=== PATIENT | male | born 1945 | race Caucasian/White ===

== ENCOUNTER 2019-03-01 20:09 | Inpatient (IN) | payer OTHER ==
--- NOTE | 2019-03-01 20:50 | PDOC ---
History of Present Illness - History of Present Illness Initial Comments: 73 year old male with no known PMH presenting with generalized weakness, decreased appetite, and urinary difficulty for the past few days. States that the first symptom was urinary difficulty about one week prior presenting with generalized weakness for the past three days and decreased appetite. Also stats that he felt chilly three days prior to this weakness. During our interview, I noticed a mild cough which he was not aware of until I had mentioned it. Denies measured fevers, nausea, vomiting, chest pain, or SOB. 03/01/19 21:50 <Josselyn Meadows - Last Filed: 03/02/19 04:01> <Harjeet Hernandez - Last Filed: 03/02/19 06:16> - General Chief Complaint: Weakness Stated Complaint: WEAKNESS Time Seen by Provider: 03/01/19 20:49 Past History <Josselyn Meadows - Last Filed: 03/02/19 04:01> <Harjeet Hernandez - Last Filed: 03/02/19 06:16> - Past Medical History Allergies/Adverse Reactions: Allergies Allergy/AdvReac Type Severity Reaction Status Date / Time No Known Allergies Allergy Verified 03/01/19 20:54 Home Medications: Ambulatory Orders Aspirin [Children's Aspirin] 81 mg PO DAILY 03/01/19 Glucosamine Sulfate Dipot Chlr [Glucosamine] 1,000 mg PO DAILY 03/01/19 Ibuprofen [Advil -] 400 mg PO DAILY 03/01/19 Review of Systems - Review of Systems Constitutional: Yes: Chills, Loss of Appetite, Weakness. No: Diaphoresis, Fever , Malaise HEENTM: No: Blurred Vision, Tearing Respiratory: Yes: Cough. No: Shortness of Breath Cardiac (ROS): No: Chest Pain, Edema ABD/GI: Yes: Poor Appetite. No: Diarrhea, Nausea, Vomiting : Yes: Other (hesitation). No: Dysuria, Discharge, Frequency Musculoskeletal: No: Back Pain, Joint Pain Integumentary: No: Bruising, Flushing, Lesions Neurological: No: Headache, Numbness, Paresthesia Psychiatric: No: Anxiety, Depression Endocrine: No: Excessive Sweating, Flushing, Intolerance to Heat Hematologic/Lymphatic: No: Anemia, Blood Clots, Easy Bleeding <Josselyn Meadows - Last Filed: 03/02/19 04:01> *Physical Exam - Physical Exam General Appearance: Yes: Nourished, Appropriately Dressed. No: Apparent Distress HEENT: positive: EOMI, LUIS FELIPE, Normal Voice. negative: Normal ENT Inspection ( dry mucous membranes) Neck: positive: Trachea midline, Normal Thyroid, Supple. negative: Tender, Rigid Respiratory/Chest: positive: Lungs Clear, Normal Breath Sounds. negative: Chest Tender, Respiratory Distress, Accessory Muscle Use Cardiovascular: positive: Regular Rhythm, Tachycardia Gastrointestinal/Abdominal: positive: Normal Bowel Sounds, Flat, Soft. negative : Tender Musculoskeletal: positive: Normal Inspection Extremity: positive: Normal Capillary Refill, Normal Inspection, Normal Range of Motion. negative: Tender Integumentary: positive: Normal Color, Dry, Warm Neurologic: positive: Fully Oriented, Alert, Normal Mood/Affect, Normal Response , Motor Strength 5/5 <Josselyn Meadows - Last Filed: 03/02/19 04:01> - Vital Signs Last Vital Signs Temp Pulse Resp BP Pulse Ox 98.3 F 86 18 131/81 98 03/02/19 03:39 03/02/19 03:39 03/02/19 03:39 03/02/19 03:39 03/02/19 05:09 <Harjeet Hernandez - Last Filed: 03/02/19 06:16> ED Treatment Course - LABORATORY CBC & Chemistry Diagram: 03/01/19 22:15 03/01/19 22:15 <Josselyn Meadows - Last Filed: 03/02/19 04:01> - LABORATORY CBC & Chemistry Diagram: 03/01/19 22:15 03/01/19 22:15 - ADDITIONAL ORDERS Additional order review: Laboratory Results 03/02/19 03/01/19 03/01/19 00:20 22:15 22:15 VBG pH 7.43 H POC VBG pCO2 34.9 L POC VBG pO2 < 49 H VBG HCO3 22.8 L VBG O2 Sat (Herbert) 76.3 VBG Base Excess -0.5 Sodium 137 Potassium 3.5 Chloride 104 Carbon Dioxide 23 Anion Gap 10 BUN 22.4 H Creatinine 1.2 Est GFR (CKD-EPI)AfAm 69.11 Est GFR (CKD-EPI)NonAf 59.63 Random Glucose 128 H Calcium 9.9 Total Bilirubin 2.8 H AST 23 ALT 38 Alkaline Phosphatase 159 H Total Protein 5.6 L Albumin 2.6 L Urine Color Dk yellow Urine Appearance Turbid Urine pH 5.5 Ur Specific [place] 1.019 Urine Protein 3+ H Urine Glucose (UA) Negative Urine Ketones Negative Urine Blood 3+ H Urine Nitrite Positive H Urine Bilirubin 2+ H Urine Urobilinogen 2.0 Ur Leukocyte Esterase 1+ H Urine WBC (Auto) 47 Urine RBC (Auto) 397 Urine Casts (Auto) 38 U Pathogenic Cast Auto Negative U Epithel Cells (Auto) 0.9 Urine Bacteria (Auto) 5728.0 03/01/19 22:15 RBC 4.90 MCV 89.7 MCHC 33.6 RDW 14.5 MPV 9.0 - Medications Given in the ED: ED Medications Discontinued Medications Generic Name Dose Route Start Last Admin Trade Name Freq PRN Reason Stop Dose Admin Acetaminophen 1,000 mg 03/02/19 00:01 03/02/19 00:29 Ofirmev Injection - IVPB 03/02/19 00:02 1,000 mg ONCE ONE Administration Ceftriaxone Sodium 1 gm/ 100 mls @ 200 mls/hr 03/02/19 00:54 03/02/19 01:25 Dextrose IVPB 03/02/19 01:23 200 mls/hr ONCE ONE Administration Sodium Chloride 1,000 mls @ 75 mls/hr 03/02/19 01:45 03/02/19 02:00 Normal Saline - IV 75 mls/hr ASDIR RAPHAEL Administration Ceftriaxone Sodium 1 gm/ 50 mls @ 100 mls/hr 03/02/19 02:06 03/02/19 03:08 Dextrose IVPB 03/02/19 02:35 Not Given ONCE ONE Ketorolac Tromethamine 15 mg 03/02/19 02:22 03/02/19 02:30 Toradol Injection - IVPUSH 03/07/19 02:21 15 mg Q6H PRN Administration PAIN LEVEL 6-10 Lidocaine 1 patch 03/02/19 00:41 03/02/19 00:51 Lidoderm Patch - TP 03/02/19 00:42 1 patch ONCE ONE Administration Sodium Chloride 1,000 ml 03/01/19 21:06 03/01/19 21:47 Normal Saline - IV 03/01/19 21:07 1,000 ml ONCE ONE Administration Tamsulosin HCl 0.4 mg 03/02/19 02:23 03/02/19 02:49 Flomax - PO 03/02/19 02:24 0.4 mg ONCE ONE Administration <Harjeet Hernandez - Last Filed: 03/02/19 06:16> Medical Decision Making - Medical Decision Making 73 year old male with no significant past medical history presenting with urinary difficulty, chills, and weakness for the past few days. Denies fevers, chest pain, or other symptoms. UA demonstrating UTI and labs demonstrating leukocytosis. CT demonstrating multiple nephroliths with 12mm nephrolith near left UVJ. No hydro noted. Patient given ceftriaxone 1GM and admitted to medicine service. 03/02/19 04:02 <Josselyn Meadows - Last Filed: 03/02/19 04:01> *DC/Admit/Observation/Transfer - Discharge Dispostion Decision to Admit order: Yes <Josselyn Meadows - Last Filed: 03/02/19 04:01> - Attestations Physician Attestion: 03/02/19 06:16 I have reviewed the plan as documented and agree with current plan as documented. Electronically co-signed by Harjeet Hernandez MD <Harjeet Hernandez - Last Filed: 03/02/19 06:16> Diagnosis at time of Disposition: UTI (urinary tract infection), Nephrolithiasis - Discharge Dispostion Disposition: HOME Condition at time of disposition: Stable
[2019-03-01] MEDS ORDERED: SODIUM CHLORIDE 0.9% 500 ML INFUS.BAG IV ONE (21:06)
--- NOTE | 2019-03-01 22:04 | PDOC ---
Documentation entered by Justus Torres SCRIBE, acting as scribe for Harjeet Hernandez MD. Harjeet Hernandez MD: This documentation has been prepared by the Brian maldonado Daniel, SCRIBE, under my direction and personally reviewed by me in its entirety. I confirm that the documentation accurately reflects all work, treatment, procedures, and medical decision making performed by me. Attending Attestation - Resident Resident Name: Josselyn Meadows - ED Attending Attestation I have performed the following: I have examined & evaluated the patient, The case was reviewed & discussed with the resident, I agree w/resident's findings & plan, Exceptions are as noted - HPI HPI: 03/01/19 21:52 The patient is a 73 year old male, no pmhx (though has not seen a doctor for 30 years) today for evaluation of weakness. The patient reports that he has had general weakness for 5 days and also notes cough and difficulty urinating describing it as feeling like he has to urinate but nothing comes out. He also notes difficulty walking due to knee pain but states that this is baseline for him. complains of chronic knee pain slightly worse from baseline but is able to ambulate. Patient denies headache, lightheadedness. Denies fever, chills. Denies chest pain, shortness of breath. Denies nausea, vomiting, diarrhea, abdominal pain. Denies Etoh, not a smoker. Allergies: NKA 03/01/19 22:02 - Physicial Exam PE: 03/01/19 21:52 Agree with resident's exam. - Medical Decision Making 03/01/19 22:03 Generalized weakness but no focal symptoms, well appearing with stable vitals labs ekg ua/ucx cxr if workup wnl and continued normal vital signs can consider pmd f/u
[2019-03-01 22:28] LABS: HEMATOCRIT 43.9 % (35.4-49); HEMOGLOBIN 14.7 GM/dL (11.7-16.9); MCH 30.1 pg (25.7-33.7); MCHC 33.6 g/dl (32.0-35.9); MEAN CELL VOLUME 89.7 fl (80-96); PLATELET COUNT 110 K/MM3 (134-434); RDW 14.5 % (11.9-15.9); WHITE BLOOD COUNT 15.6 K/mm3 (4.0-10.0)
[2019-03-01 22:33] LABS: VENOUS PC02 34.9 mmHg (38-52); VENOUS PH 7.43 (7.31-7.41); VENOUS PO2 < 49 mmHg (28-48)
[2019-03-01 22:50] LABS: ALBUMIN 2.6 g/dl (3.4-5.0); BILIRUBIN,TOTAL 2.8 mg/dL (0.2-1); BLOOD UREA NITROGEN 22.4 mg/dL (7-18); CALCIUM 9.9 mg/dL (8.5-10.1); CREATININE 1.2 mg/dL (0.55-1.3); POTASSIUM 3.5 mmol/L (3.5-5.1); TOT PROT 5.6 g/dl (6.4-8.2)
[2019-03-02] MEDS ORDERED: ACETAMINOPHEN 1000 MG/100 ML VIAL (NON FORMULARY) IVPB ONE (00:01)
[2019-03-02] MEDS ORDERED: ACETAMINOPHEN INJECTION 100 ML IVPB ONE (00:03)
[2019-03-02] MEDS ORDERED: LIDOCAINE 5% TOPICAL PATCH TP ONE (00:41)
[2019-03-02 00:44] LABS: EPI CELLS 0.9 /HPF (0-5/HPF); HYALINE CASTS 38 /lpf (0-8); PH,URINE 5.5 (5.0-8.0); URINE APPEARANCE TURBID; URINE BILIRUBIN 2+ (NEGATIVE); URINE COLOR DK YELLOW; URINE GLUCOSE (UA) NEGATIVE (NEGATIVE); URINE KETONE NEGATIVE (NEGATIVE); URINE LEUK ESTERASE 1+ (NEGATIVE); URINE NITRITE POSITIVE (NEGATIVE); URINE PROTEIN 3+ (NEGATIVE); URINE RBC 397 /hpf (0-4); URINE WBC 47 /hpf (0-5)
[2019-03-02] MEDS ORDERED: LIDOCAINE 5% TOPICAL PATCH ONE (00:47)
[2019-03-02] MEDS ORDERED: CEFTRIAXONE 1 GM in DEXTROSE 5%-WATER - 100 ML IVPB ONE (00:54)
[2019-03-02] MEDS ORDERED: CEFTRIAXONE 1 GM/50 ML BAG ONE (01:14)
[2019-03-02] MEDS ORDERED: SODIUM CHLORIDE 1,000 ML IV SCH (01:45)
[2019-03-02] MEDS ORDERED: ACETAMINOPHEN 1000 MG/100 ML VIAL (NON FORMULARY) IVPB PRN (01:46)
[2019-03-02] MEDS ORDERED: CEFTRIAXONE 1 GM in DEXTROSE 5%-WATER - 50 ML IVPB ONE (02:06)
--- NOTE | 2019-03-02 02:10 | HP ---
CHIEF COMPLAINT: Generalized weakness, decreased appetite, and urinary hesitancy for the past 5 days. PCP: None HISTORY OF PRESENT ILLNESS: The patient is a 73 year old male with no significant PMH. He presents to the ER with complaints of weakness, decreased appetite, and urinary hesitancy for the past 5 days. He was consuming beers at a local bar when he took a break to urinate. After urinating, he states that he began to feel very cold and his hands started shaking. After that episode, he developed urinary hesitancy and dribbling with the urine appearing darker than usual. He also developed loss of appetite, and has consumed only liquids since then. There are no associated complaints of abdominal pain, dysuria, hematuria, or incontinence. He also complains of gradual onset, constant right sided knee pain for the past 3 years, with no history of associated trauma. He describes it as being constant , and sharp in quality, rated 8/10 in intensity. He takes 2 Advils per day to manage the pain. He has also had a dry cough for the past one week, with no associated fever, shortness of breath, chest pain. (1) CT AP: prelim reading reports 12mm RUVJ stone with mod hydronephrosis and scattered renal stones (2) WBC 15.6 (3) Meropenem 1gm in Dextrose, Ceftriaxone 1gm given previously Recent Travel: None PAST MEDICAL HISTORY: None PAST SURGICAL HISTORY: None Social History: Smoking: None Alcohol: 7-8 beers every other day for the past 55 years Drugs: None Family History: Brother had some sort of cancer, at the age of 43 Allergies No Known Allergies Allergy (Verified 03/01/19 20:54) HOME MEDICATIONS: Home Medications Medication Instructions Recorded Aspirin [Children's Aspirin] 81 mg PO DAILY 03/01/19 Glucosamine Sulfate Dipot Chlr 1,000 mg PO DAILY 03/01/19 [Glucosamine] Ibuprofen [Advil -] 400 mg PO DAILY 03/01/19 REVIEW OF SYSTEMS CONSTITUTIONAL: generalized weakness Absent: fever, chills, diaphoresis, malaise, loss of appetite, weight change HEENT: Absent: rhinorrhea, nasal congestion, throat pain, throat swelling, difficulty swallowing, mouth swelling, ear pain, eye pain, visual changes CARDIOVASCULAR: Absent: chest pain, syncope, palpitations, irregular heart rate, lightheadedness , peripheral edema RESPIRATORY: cough Absent: cough, shortness of breath, dyspnea with exertion, orthopnea, wheezing, stridor, hemoptysis GASTROINTESTINAL: Absent: abdominal pain, abdominal distension, nausea, vomiting, diarrhea, constipation, melena, hematochezia GENITOURINARY: Absent: dysuria, frequency, urgency, hesitancy, hematuria, flank pain, genital pain MUSCULOSKELETAL: Absent: myalgia, arthralgia, joint swelling, back pain, neck pain SKIN: Absent: rash, itching, pallor HEMATOLOGIC/IMMUNOLOGIC: Absent: easy bleeding, easy bruising, lymphadenopathy, frequent infections ENDOCRINE: Absent: unexplained weight gain, unexplained weight loss, heat intolerance, cold intolerance NEUROLOGIC: Absent: headache, focal weakness or paresthesias, dizziness, unsteady gait, seizure, mental status changes, bladder or bowel incontinence PSYCHIATRIC: Absent: anxiety, depression, suicidal or homicidal ideation, hallucinations. PHYSICAL EXAMINATION Vital Signs - 24 hr 03/01/19 20:40 Temperature 98.7 F Pulse Rate 102 H Respiratory 20 Rate Blood Pressure 122/63 O2 Sat by Pulse 100 Oximetry (%) GENERAL: Awake, alert, and fully oriented, in no acute distress. HEAD: Normal with no signs of trauma. EYES: Pupils equal, round and reactive to light, extraocular movements intact, sclera anicteric, conjunctiva clear. No lid lag. EARS, NOSE, THROAT: Ears normal, nares patent, oropharynx clear without exudates. Moist mucous membranes. NECK: Normal range of motion, supple without lymphadenopathy, JVD, or masses. LUNGS: Breath sounds equal, clear to auscultation bilaterally. No wheezes, and no crackles. No accessory muscle use. HEART: Regular rate and rhythm, normal S1 and S2 without murmur, rub or gallop. ABDOMEN: Soft, nontender, not distended, normoactive bowel sounds, no guarding, no rebound, no masses. No hepatomegaly or splenomegaly. MUSCULOSKELETAL: Normal range of motion at all joints. No bony deformities or tenderness. No CVA tenderness. UPPER EXTREMITIES: 2+ pulses, warm, well-perfused. No cyanosis. No clubbing. No peripheral edema. LOWER EXTREMITIES: Lidocaine patch on R knee, limited range of motion NEUROLOGICAL: Cranial nerves II-XII intact. Normal speech, gait not observed PSYCHIATRIC: Cooperative. Good eye contact. Appropriate mood and affect. SKIN: Warm, dry, normal turgor, no rashes or lesions noted, normal capillary refill. Laboratory Results - last 24 hr 03/01/19 03/01/19 03/01/19 22:15 22:15 22:15 WBC 15.6 H RBC 4.90 Hgb 14.7 Hct 43.9 MCV 89.7 MCH 30.1 MCHC 33.6 RDW 14.5 Plt Count 110 L MPV 9.0 VBG pH 7.43 H POC VBG pCO2 34.9 L POC VBG pO2 < 49 H VBG HCO3 22.8 L VBG O2 Sat (Herbert) 76.3 VBG Base Excess -0.5 Sodium 137 Potassium 3.5 Chloride 104 Carbon Dioxide 23 Anion Gap 10 BUN 22.4 H Creatinine 1.2 Est GFR (CKD-EPI)AfAm 69.11 Est GFR (CKD-EPI)NonAf 59.63 Random Glucose 128 H Calcium 9.9 Total Bilirubin 2.8 H AST 23 ALT 38 Alkaline Phosphatase 159 H Total Protein 5.6 L Albumin 2.6 L Urine Color Urine Appearance Urine pH Ur Specific [place] Urine Protein Urine Glucose (UA) Urine Ketones Urine Blood Urine Nitrite Urine Bilirubin Urine Urobilinogen Ur Leukocyte Esterase Urine WBC (Auto) Urine RBC (Auto) Urine Casts (Auto) U Epithel Cells (Auto) Urine Bacteria (Auto) 03/02/19 00:20 WBC RBC Hgb Hct MCV MCH MCHC RDW Plt Count MPV VBG pH POC VBG pCO2 POC VBG pO2 VBG HCO3 VBG O2 Sat (Herbert) VBG Base Excess Sodium Potassium Chloride Carbon Dioxide Anion Gap BUN Creatinine Est GFR (CKD-EPI)AfAm Est GFR (CKD-EPI)NonAf Random Glucose Calcium Total Bilirubin AST ALT Alkaline Phosphatase Total Protein Albumin Urine Color Dk yellow Urine Appearance Turbid Urine pH 5.5 Ur Specific [place] 1.019 Urine Protein 3+ H Urine Glucose (UA) Negative Urine Ketones Negative Urine Blood 3+ H Urine Nitrite Positive H Urine Bilirubin 2+ H Urine Urobilinogen 2.0 Ur Leukocyte Esterase 1+ H Urine WBC (Auto) 47 Urine RBC (Auto) 397 Urine Casts (Auto) 38 U Epithel Cells (Auto) 0.9 Urine Bacteria (Auto) 5728.0 ASSESSMENT/PLAN: # Rt UVJ stone - CT AP prelim read shows 12mm stone inn R UVJ - Meropenem 1gm in Dextrose, Ceftriaxone 1gm given previously - Morphine 4mg Q4 IV and Ofiramev 1g Q6 for pain - Dalton placed - ID and Urology consults placed - Tamsulosin 0.4mg #Rt knee pain - Ortho consult placed - Rt knee X Ray read pending - PT ordered #Elevated ALP, Bili - Bili 2.8, ALP 159 - RUQ US to check for bile duct dilation # Leukocytosis - Possibly 2/2 obstruction - WBC 15.6 - Blood cx and Ucx ordered #Thrombocytopenia - HIV and HCV ordered #FEN - NPO for possible urology procedure - N/S given - R/L@100 #DVT PE - SCDs Visit type - Emergency Visit Emergency Visit: Yes ED Registration Date: 03/02/19 Care time: The patient presented to the Emergency Department on the above date and was hospitalized for further evaluation of their emergent condition. - New Patient This patient is new to me today: Yes Date on this admission: 03/08/19 - Critical Care Critical Care patient: No ATTENDING PHYSICIAN STATEMENT I saw and evaluated the patient. I reviewed the resident's note and discussed the case with the resident. I agree with the resident's findings and plan as documented. SUBJECTIVE: OBJECTIVE: ASSESSMENT AND PLAN:
[2019-03-02] MEDS ORDERED: KETOROLAC TROMETHAMINE 15 MG/ML VIAL IVPUSH PRN (02:22)
[2019-03-02] MEDS ORDERED: TAMSULOSIN HCL 0.4 MG CAP PO ONE (02:23)
--- NOTE | 2019-03-02 02:25 | PN ---
Teaching Attending Note Name of Resident: Myles Otto ATTENDING PHYSICIAN STATEMENT I saw and evaluated the patient. I reviewed the resident's note and discussed the case with the resident. I agree with the resident's findings and plan as documented. Seen and examined; please refer to resident note for further historical information. Briefly, this is a 73 y/o male presenting to the ER with a CC of weakness, inability to make urine, urinary retention. He has BPH sx of incomplete emptying, etc. Some difficulty encountered on initial straight cath ordered by ER; we instructed nursing to place paredes. CT obtained to r/o obstruction and found to have 12mm renal stone with moderate hydr and scattered renal stones. VS, labs, imaging reviewed Abdominal exam remarkably benign, ND, +BS CN2-12 wnl, no fnd Normal mood, appropriate behavior RRR s1/2 Lungs CTAB, w/ sym exp Pain in affected knee to Valgus>Varus, no heriberto positive lachmans. Normal mood, appropriate behavior CT personally reviewed; preliminary report noted. Final pending. ASSESSMENT AND PLAN: Patient presents with sepsis 2/2 UTI due to obstructing R-UVJ stone causing R- hydro. Incidentally with thrombocytopenia (HIV and HCV pending), elevated bili and alk phos with normal AST/ALT. Doesn't normally follow with a doctor. Has chronic knee pain and wishes to see ortho. # Sepsis 2/2 UTI with obstructing stone R-UVJ -Merrem, ID and uro consult. LR@100. NPO. Checking coags and type and cross. # Elevated Alk phos, bili -GGT, direct, RUQ US # Thrombocytopenia -HIV and HCV pending # Chronic Knee pain -Followup ortho consult; PRN analgesia Full Code
[2019-03-02] MEDS ORDERED: KETOROLAC TROMETHAMINE 15 MG/ML VIAL ONE (02:27)
[2019-03-02] MEDS ORDERED: MEROPENEM 1 GM VIAL (RESTRICTED TO ID) IVPB ONE ×3 (02:27→18:00)
[2019-03-02] MEDS ORDERED: TAMSULOSIN HCL 0.4 MG CAP ONE (02:27)
[2019-03-02] MEDS ORDERED: MORPHINE SULFATE 2 MG/ML VIAL IVPUSH PRN (02:37)
[2019-03-02] MEDS: MEROPENEM 1 GM in DEXTROSE 5%-WATER 100 ML IVPB SCH ×5 (02:49→20:06)
[2019-03-02] MEDS: LACTATED RINGERS SOLUTION 1,000 ML/1,000 ML INFUS.BAG IV SCH (03:06)
[2019-03-02 05:08] VITALS: BMI 29.5
[2019-03-02 08:03] LABS: ALBUMIN 2.4 g/dl (3.4-5.0); BILIRUBIN,TOTAL 2.4 mg/dL (0.2-1); BLOOD UREA NITROGEN 24.2 mg/dL (7-18); CALCIUM 9.7 mg/dL (8.5-10.1); CREATININE 1.3 mg/dL (0.55-1.3); POTASSIUM 3.8 mmol/L (3.5-5.1); TOT PROT 5.3 g/dl (6.4-8.2)
[2019-03-02 08:05] LABS: BASO % 0.2 % (0-2.0); EOS % 0.4 % (0-4.5); HEMATOCRIT 39.8 % (35.4-49); HEMOGLOBIN 13.7 GM/dL (11.7-16.9); LYMPH % 4.4 % (8-40); MCH 30.4 pg (25.7-33.7); MCHC 34.4 g/dl (32.0-35.9); MEAN CELL VOLUME 88.5 fl (80-96); MEAN PLT VOLUME 9.7 fl (7.5-11.1); MONO % 10.9 % (3.8-10.2); NEUT % 84.1 % (42.8-82.8); PLATELET COUNT 115 K/MM3 (134-434); RBC 4.49 M/mm3 (4.00-5.60); RDW 14.4 % (11.9-15.9); WHITE BLOOD COUNT 13.3 K/mm3 (4.0-10.0)
[2019-03-02 08:11] LABS: INR 1.28 (0.83-1.09); PROTHROMBIN TIME (PATIENT) 15.2 SEC (9.7-13.0)
[2019-03-02 08:14] LABS: ACTIVATED PTT 33.1 SECONDS (25.2-36.5)
[2019-03-02 08:21] LABS: BILIRUBIN,DIRECT 1.8 mg/dL (0.0-0.2)
[2019-03-02 08:24] LABS: BILIRUBIN,DIRECT 1.9 mg/dL (0.0-0.2); N-TERMINAL BNP 1089.2 pg/ml (5-125)
[2019-03-02] MEDS: TAMSULOSIN HCL 0.4 MG CAP PO SCH ×2 (09:10→10:55)
[2019-03-02] MEDS ORDERED: DEXTROSE 5%-WATER 100 ML IVPB ONE ×2 (09:11→18:00)
[2019-03-02 09:57] LABS: ANISOCYTOSIS 0; MACROCYTOSIS 0; PLATELET ESTIMATE DECREASED
[2019-03-02] MEDS ORDERED: CEFTRIAXONE 1 GM in DEXTROSE 5%-WATER - 50 ML IVPB SCH (10:00)
--- NOTE | 2019-03-02 10:55 | EKG ---
Test Reason : Blood Pressure : / mmHG Vent. Rate : 091 BPM Atrial Rate : 091 BPM P-R Int : 232 ms QRS Dur : 108 ms QT Int : 372 ms P-R-T Axes : 036 -27 008 degrees QTc Int : 457 ms SINUS RHYTHM WITH 1ST DEGREE A-V BLOCK WITH FREQUENT and consecutive PREMATURE VENTRICULAR COMPLEXES INCOMPLETE RIGHT BUNDLE BRANCH BLOCK MINIMAL VOLTAGE CRITERIA FOR LVH, MAY BE NORMAL VARIANT ABNORMAL ECG NO PREVIOUS ECGS AVAILABLE Confirmed by ALFREDO HELLER, LINO ([id number]) on 03/02/2019 10:55:03 AM Referred By: Confirmed By:LINO FUENTES MD
--- NOTE | 2019-03-02 17:13 | CON.GU ---
Consult Consult Specialty:: - History of Present Illness History of Present Illness: 73 y/o male presenting to the ER with a CC of weakness, inability to make urine , urinary retention. He has BPH sx of incomplete emptying, etc. Some difficulty encountered on initial straight cath ordered by ER; we instructed nursing to place paredes. CT obtained to r/o obstruction and found to have 12mm R UVJ stone with moderate hydro and scattered renal stones and cons req. - History Source History Provided By: Patient, Medical Record Limitations to Obtaining History: No Limitations - Alcohol/Substance Use Hx Alcohol Use: Yes (SOCIALLY) - Smoking History Smoking history: Never smoked Home Medications - Allergies Allergies/Adverse Reactions: Allergies Allergy/AdvReac Type Severity Reaction Status Date / Time No Known Allergies Allergy Verified 03/01/19 20:54 - Home Medications Home Medications: Ambulatory Orders Aspirin [Children's Aspirin] 81 mg PO DAILY 03/01/19 Glucosamine Sulfate Dipot Chlr [Glucosamine] 1,000 mg PO DAILY 03/01/19 Ibuprofen [Advil -] 400 mg PO DAILY 03/01/19 Physical Exam- Vital Signs: Vital Signs Temperature 99.7 F H 03/02/19 14:00 Pulse Rate 105 H 03/02/19 14:00 Respiratory Rate 18 03/02/19 14:00 Blood Pressure 134/58 L 03/02/19 14:00 O2 Sat by Pulse Oximetry (%) 98 03/02/19 05:09 Gastrointestinal: Yes: Soft, Tenderness Renal/: Yes: CVA Tenderness - Right Labs: CBC, BMP 03/02/19 07:00 03/02/19 07:00 Imaging - Results Cat Scan: Report Reviewed, Image Reviewed Problem List - Problems (1) Ureteral calculus Assessment/Plan: cysto R JJ stent insertion 03/03, RULL JJ after uti resolved Code(s): N20.1 - CALCULUS OF URETER (2) Hydronephrosis concurrent with and due to calculi of kidney and ureter Code(s): N13.2 - HYDRONEPHROSIS WITH RENAL AND URETERAL CALCULOUS OBSTRUCTION (3) UTI (urinary tract infection) Assessment/Plan: ur cxs, iv abxs Code(s): N39.0 - URINARY TRACT INFECTION, SITE NOT SPECIFIED (4) Renal calculi Code(s): N20.0 - CALCULUS OF KIDNEY
--- NOTE | 2019-03-02 17:21 | PN ---
Physical Exam: SUBJECTIVE: Patient seen and examined. Pt reports feeling more tired than usual. He denies abdominal pain or chest pain. OBJECTIVE: Vital Signs Period Temp Pulse Resp BP Sys/Hernandez Pulse Ox Last 24 Hr 97.6 F-99.7 F 86-105 18-20 119-134/58-82 97-100 GENERAL: The patient is awake, alert, and fully oriented, in no acute distress. HEAD: Normal with no signs of trauma. EYES: PERRL, extraocular movements intact, sclera anicteric, conjunctiva clear. No ptosis. ENT: Ears normal, nares patent, moist mucous membranes. NECK: Trachea midline, full range of motion, supple. LUNGS: Breath sounds equal, clear to auscultation bilaterally, no wheezes, no crackles, no accessory muscle use. HEART:Regular rate and irregular rhythm, S1, S2 without murmur, rub or gallop. ABDOMEN: Soft, suprapubic tenderness, nondistended, normoactive bowel sounds EXTREMITIES: 2+ pulses, warm, well-perfused, +1 pitting edema bilateral feet NEUROLOGICAL: Cranial nerves II through XII grossly intact. Normal speech, gait not observed. PSYCH: Normal mood, normal affect. SKIN: Warm, dry, normal turgor, no rashes or lesions noted Laboratory Results - last 24 hr 03/01/19 03/01/19 03/01/19 22:15 22:15 22:15 WBC 15.6 H RBC 4.90 Hgb 14.7 Hct 43.9 MCV 89.7 MCH 30.1 MCHC 33.6 RDW 14.5 Plt Count 110 L MPV 9.0 Absolute Neuts (auto) Neutrophils % Neutrophils % (Manual) Band Neutrophils % Lymphocytes % Lymphocytes % (Manual) Monocytes % Monocytes % (Manual) Eosinophils % Eosinophils % (Manual) Basophils % Basophils % (Manual) Myelocytes % (Man) Promyelocytes % (Man) Blast Cells % (Manual) Nucleated RBC % Metamyelocytes Hypochromia Platelet Estimate Polychromasia Poikilocytosis Anisocytosis Microcytosis Macrocytosis PT with INR INR PTT (Actin FS) VBG pH 7.43 H POC VBG pCO2 34.9 L POC VBG pO2 < 49 H VBG HCO3 22.8 L VBG O2 Sat (Herbert) 76.3 VBG Base Excess -0.5 Sodium 137 Potassium 3.5 Chloride 104 Carbon Dioxide 23 Anion Gap 10 BUN 22.4 H Creatinine 1.2 Est GFR (CKD-EPI)AfAm 69.11 Est GFR (CKD-EPI)NonAf 59.63 Random Glucose 128 H Lactic Acid Calcium 9.9 Magnesium Total Bilirubin 2.8 H Direct Bilirubin 1.9 H AST 23 ALT 38 Alkaline Phosphatase 159 H B-Natriuretic Peptide 1089.2 H Total Protein 5.6 L Albumin 2.6 L Lipase Urine Color Urine Appearance Urine pH Ur Specific [place] Urine Protein Urine Glucose (UA) Urine Ketones Urine Blood Urine Nitrite Urine Bilirubin Urine Urobilinogen Ur Leukocyte Esterase Urine WBC (Auto) Urine RBC (Auto) Urine Casts (Auto) U Pathogenic Cast Auto U Epithel Cells (Auto) Urine Bacteria (Auto) HIV 1&2 Antibody Screen HIV P24 Antigen Blood Type Antibody Screen 03/02/19 03/02/19 03/02/19 00:15 00:20 07:00 WBC RBC Hgb Hct MCV MCH MCHC RDW Plt Count MPV Absolute Neuts (auto) Neutrophils % Neutrophils % (Manual) Band Neutrophils % Lymphocytes % Lymphocytes % (Manual) Monocytes % Monocytes % (Manual) Eosinophils % Eosinophils % (Manual) Basophils % Basophils % (Manual) Myelocytes % (Man) Promyelocytes % (Man) Blast Cells % (Manual) Nucleated RBC % Metamyelocytes Hypochromia Platelet Estimate Polychromasia Poikilocytosis Anisocytosis Microcytosis Macrocytosis PT with INR INR PTT (Actin FS) VBG pH POC VBG pCO2 POC VBG pO2 VBG HCO3 VBG O2 Sat (Herbret) VBG Base Excess Sodium Potassium Chloride Carbon Dioxide Anion Gap BUN Creatinine Est GFR (CKD-EPI)AfAm Est GFR (CKD-EPI)NonAf Random Glucose Lactic Acid 1.6 Calcium Magnesium Total Bilirubin Direct Bilirubin AST ALT Alkaline Phosphatase B-Natriuretic Peptide Total Protein Albumin Lipase Urine Color Dk yellow Urine Appearance Turbid Urine pH 5.5 Ur Specific [place] 1.019 Urine Protein 3+ H Urine Glucose (UA) Negative Urine Ketones Negative Urine Blood 3+ H Urine Nitrite Positive H Urine Bilirubin 2+ H Urine Urobilinogen 2.0 Ur Leukocyte Esterase 1+ H Urine WBC (Auto) 47 Urine RBC (Auto) 397 Urine Casts (Auto) 38 U Pathogenic Cast Auto Negative U Epithel Cells (Auto) 0.9 Urine Bacteria (Auto) 5728.0 HIV 1&2 Antibody Screen HIV P24 Antigen Blood Type O POSITIVE Antibody Screen 03/02/19 03/02/19 03/02/19 07:00 07:00 07:00 WBC 13.3 H RBC 4.49 Hgb 13.7 Hct 39.8 MCV 88.5 MCH 30.4 MCHC 34.4 RDW 14.4 Plt Count 115 L MPV 9.7 Absolute Neuts (auto) 11.2 H Neutrophils % 84.1 H Neutrophils % (Manual) 83.7 H Band Neutrophils % 0.0 Lymphocytes % 4.4 L Lymphocytes % (Manual) 3.0 L Monocytes % 10.9 H Monocytes % (Manual) 13 H Eosinophils % 0.4 Eosinophils % (Manual) 0.0 Basophils % 0.2 Basophils % (Manual) 0.0 Myelocytes % (Man) 0 Promyelocytes % (Man) 0 Blast Cells % (Manual) 0 Nucleated RBC % 0 Metamyelocytes 0 Hypochromia 0 Platelet Estimate Decreased Polychromasia 0 Poikilocytosis 0 Anisocytosis 0 Microcytosis 0 Macrocytosis 0 PT with INR INR PTT (Actin FS) VBG pH POC VBG pCO2 POC VBG pO2 VBG HCO3 VBG O2 Sat (Herbert) VBG Base Excess Sodium 139 Potassium 3.8 Chloride 105 Carbon Dioxide 26 Anion Gap 7 L BUN 24.2 H Creatinine 1.3 Est GFR (CKD-EPI)AfAm 62.74 Est GFR (CKD-EPI)NonAf 54.13 Random Glucose 99 Lactic Acid Calcium 9.7 Magnesium 2.0 Total Bilirubin 2.4 H Direct Bilirubin 1.8 H AST 19 ALT 32 Alkaline Phosphatase 137 H B-Natriuretic Peptide Total Protein 5.3 L Albumin 2.4 L Lipase Urine Color Urine Appearance Urine pH Ur Specific [place] Urine Protein Urine Glucose (UA) Urine Ketones Urine Blood Urine Nitrite Urine Bilirubin Urine Urobilinogen Ur Leukocyte Esterase Urine WBC (Auto) Urine RBC (Auto) Urine Casts (Auto) U Pathogenic Cast Auto U Epithel Cells (Auto) Urine Bacteria (Auto) HIV 1&2 Antibody Screen Cancelled HIV P24 Antigen Cancelled Blood Type Antibody Screen 03/02/19 03/02/19 03/02/19 07:00 07:00 07:00 WBC RBC Hgb Hct MCV MCH MCHC RDW Plt Count MPV Absolute Neuts (auto) Neutrophils % Neutrophils % (Manual) Band Neutrophils % Lymphocytes % Lymphocytes % (Manual) Monocytes % Monocytes % (Manual) Eosinophils % Eosinophils % (Manual) Basophils % Basophils % (Manual) Myelocytes % (Man) Promyelocytes % (Man) Blast Cells % (Manual) Nucleated RBC % Metamyelocytes Hypochromia Platelet Estimate Polychromasia Poikilocytosis Anisocytosis Microcytosis Macrocytosis PT with INR 15.20 H INR 1.28 H PTT (Actin FS) 33.1 VBG pH POC VBG pCO2 POC VBG pO2 VBG HCO3 VBG O2 Sat (Herbert) VBG Base Excess Sodium Potassium Chloride Carbon Dioxide Anion Gap BUN Creatinine Est GFR (CKD-EPI)AfAm Est GFR (CKD-EPI)NonAf Random Glucose Lactic Acid Calcium Magnesium Total Bilirubin Direct Bilirubin AST ALT Alkaline Phosphatase B-Natriuretic Peptide Total Protein Albumin Lipase 64 L Urine Color Urine Appearance Urine pH Ur Specific [place] Urine Protein Urine Glucose (UA) Urine Ketones Urine Blood Urine Nitrite Urine Bilirubin Urine Urobilinogen Ur Leukocyte Esterase Urine WBC (Auto) Urine RBC (Auto) Urine Casts (Auto) U Pathogenic Cast Auto U Epithel Cells (Auto) Urine Bacteria (Auto) HIV 1&2 Antibody Screen HIV P24 Antigen Blood Type O POSITIVE Antibody Screen Negative Active Medications Generic Name Dose Route Start Last Admin Trade Name Freq PRN Reason Stop Dose Admin Acetaminophen 1,000 mg 03/02/19 01:46 Ofirmev Injection - IVPB Q6H PRN PAIN OR FEVER Meropenem 1 gm/ Dextrose 100 mls @ 200 mls/hr 03/02/19 02:30 IVPB Q8H-IV RAPHAEL Meropenem 1 gm/ Dextrose 100 mls @ 100 mls/hr 03/02/19 02:30 03/02/19 09:17 IVPB 03/02/19 18:59 100 mls/hr Q8H-IV RAPHAEL Administration Lactated Ringer's 1,000 ml in 1,000 mls @ 100 mls/hr 03/02/19 02:45 03/02/19 03:06 Lactated Ringers Solution IV 100 mls/hr ASDIR RAPHAEL Administration Miscellaneous 1 each 03/02/19 22:00 Lidoderm Patch Removal MC DAILY@2200 RAPHAEL Morphine Sulfate 4 mg 03/02/19 02:37 Morphine Sulfate IVPUSH Q4H PRN PAIN LEVEL 6-10 Tamsulosin HCl 0.4 mg 03/02/19 08:30 03/02/19 10:55 Flomax - PO 0.4 mg DAILY@0830 [facility] Administration ASSESSMENT/PLAN: Mr. Gee is a 73yo male with no known PMH who presents with weakness, urinary hesitancy, and chronic knee pain on 03/01/19. Pt found to have complicated UTI 2/2 nephrolithiasis and osteoarthritis. #complicated UTI 2/2 nephrolithiasis Pt had 5 days of urinary hesitancy, dribbling, chills, and weakness. WBC 15.6. BUN 24.2. UA showed + nitrites, +1 leuk esterase, +3 blood, +3 protein, +[address] showed 1.2x0.9cm stone just prior to right ureterovesical junction , mild right renal hydronephrosis, mild to mod hydroureter and minimal perinephric fluid. Enlarged prostate with small calcifications. Received dose of ceftriaxone and meropenem. -flomax initiation -paredes insertion -Dr. Cleveland urology consulted-stent insertion planned for tomorrow -Dr. Le ID consulted-started Zosyn -pain control-morphine 4mg Q4H PRN -CMP -urine culture pending #leukocytosis -Zosyn -CBC #right knee osteoarthritis Pt has chronic knee pain x 3 years. X-ray showed OA and small suprapatellar joint effusion. No acute fx. -Dr. Morillo ortho consulted- no evidence of septic joint, weight baring as tolerated, RICE, pain control, outpt MRI suggested as well as f/u, ortho signed off -PT consult after urological procedure #thrombocytopenia Plt 110 -HIV, HCV pending #hyperbilirubinemia 2.8. U/S fatty liver disease vs hepatocellular disease. Multiple gallstones with mild gallbladder wall thickening. No pericholecystic fluid. -CMP trend #alcohol use pt drinks ~7 beers 3-4 days/wk x 55 years #screening Pt reports not going to the doctor in 30 years. Given unknown medical hx will run labs for chronic conditions that may affect tx. -HbA1C -lipid panel FEN LR 100mL/hr monitor lytes regular diet DVT Ppe heparin Visit type - Emergency Visit Emergency Visit: Yes ED Registration Date: 03/02/19 Care time: The patient presented to the Emergency Department on the above date and was hospitalized for further evaluation of their emergent condition. - New Patient This patient is new to me today: Yes Date on this admission: 03/02/19 - Critical Care Critical Care patient: No - Discharge Referral Referred to [facility] Med [facility] No ATTENDING PHYSICIAN STATEMENT I saw and evaluated the patient. I reviewed the resident's note and discussed the case with the resident. I agree with the resident's findings and plan as documented. SUBJECTIVE: OBJECTIVE: ASSESSMENT AND PLAN:
--- NOTE | 2019-03-02 17:49 | PN ---
Teaching Attending Note Name of Resident: Ruth Ann Boateng ATTENDING PHYSICIAN STATEMENT I saw and evaluated the patient. I reviewed the resident's note and discussed the case with the resident. I agree with the resident's findings and plan as documented. SUBJECTIVE: Suprapubic pain resolved. no fever/chills. OBJECTIVE: Afebrile, Hemodynamically Stable. Last Vital Signs Temp Pulse Resp BP Pulse Ox 99.7 F H 105 H 18 134/58 L 98 03/02/19 14:00 03/02/19 14:00 03/02/19 14:00 03/02/19 14:00 03/02/19 05:09 HEENT - Atramatic, Normocephalic. Heart - S1, S2, RRR Lungs - good air entry bilaterally Abdomen- Soft, non-tender. Bowel Sounds normal. Extremities - no calf tenderness. MS - Lidocaine patch R knee. Non-tender. Good ROM. Laboratory Results - last 24 hr 03/01/19 03/01/19 03/01/19 22:15 22:15 22:15 WBC 15.6 H RBC 4.90 Hgb 14.7 Hct 43.9 MCV 89.7 MCH 30.1 MCHC 33.6 RDW 14.5 Plt Count 110 L MPV 9.0 Absolute Neuts (auto) Neutrophils % Neutrophils % (Manual) Band Neutrophils % Lymphocytes % Lymphocytes % (Manual) Monocytes % Monocytes % (Manual) Eosinophils % Eosinophils % (Manual) Basophils % Basophils % (Manual) Myelocytes % (Man) Promyelocytes % (Man) Blast Cells % (Manual) Nucleated RBC % Metamyelocytes Hypochromia Platelet Estimate Polychromasia Poikilocytosis Anisocytosis Microcytosis Macrocytosis PT with INR INR PTT (Actin FS) VBG pH 7.43 H POC VBG pCO2 34.9 L POC VBG pO2 < 49 H VBG HCO3 22.8 L VBG O2 Sat (Herbert) 76.3 VBG Base Excess -0.5 Sodium 137 Potassium 3.5 Chloride 104 Carbon Dioxide 23 Anion Gap 10 BUN 22.4 H Creatinine 1.2 Est GFR (CKD-EPI)AfAm 69.11 Est GFR (CKD-EPI)NonAf 59.63 Random Glucose 128 H Lactic Acid Calcium 9.9 Magnesium Total Bilirubin 2.8 H Direct Bilirubin 1.9 H AST 23 ALT 38 Alkaline Phosphatase 159 H B-Natriuretic Peptide 1089.2 H Total Protein 5.6 L Albumin 2.6 L Lipase Urine Color Urine Appearance Urine pH Ur Specific [place] Urine Protein Urine Glucose (UA) Urine Ketones Urine Blood Urine Nitrite Urine Bilirubin Urine Urobilinogen Ur Leukocyte Esterase Urine WBC (Auto) Urine RBC (Auto) Urine Casts (Auto) U Pathogenic Cast Auto U Epithel Cells (Auto) Urine Bacteria (Auto) HIV 1&2 Antibody Screen HIV P24 Antigen Blood Type Antibody Screen 03/02/19 03/02/19 03/02/19 00:15 00:20 07:00 WBC RBC Hgb Hct MCV MCH MCHC RDW Plt Count MPV Absolute Neuts (auto) Neutrophils % Neutrophils % (Manual) Band Neutrophils % Lymphocytes % Lymphocytes % (Manual) Monocytes % Monocytes % (Manual) Eosinophils % Eosinophils % (Manual) Basophils % Basophils % (Manual) Myelocytes % (Man) Promyelocytes % (Man) Blast Cells % (Manual) Nucleated RBC % Metamyelocytes Hypochromia Platelet Estimate Polychromasia Poikilocytosis Anisocytosis Microcytosis Macrocytosis PT with INR INR PTT (Actin FS) VBG pH POC VBG pCO2 POC VBG pO2 VBG HCO3 VBG O2 Sat (Herbert) VBG Base Excess Sodium Potassium Chloride Carbon Dioxide Anion Gap BUN Creatinine Est GFR (CKD-EPI)AfAm Est GFR (CKD-EPI)NonAf Random Glucose Lactic Acid 1.6 Calcium Magnesium Total Bilirubin Direct Bilirubin AST ALT Alkaline Phosphatase B-Natriuretic Peptide Total Protein Albumin Lipase Urine Color Dk yellow Urine Appearance Turbid Urine pH 5.5 Ur Specific [place] 1.019 Urine Protein 3+ H Urine Glucose (UA) Negative Urine Ketones Negative Urine Blood 3+ H Urine Nitrite Positive H Urine Bilirubin 2+ H Urine Urobilinogen 2.0 Ur Leukocyte Esterase 1+ H Urine WBC (Auto) 47 Urine RBC (Auto) 397 Urine Casts (Auto) 38 U Pathogenic Cast Auto Negative U Epithel Cells (Auto) 0.9 Urine Bacteria (Auto) 5728.0 HIV 1&2 Antibody Screen HIV P24 Antigen Blood Type O POSITIVE Antibody Screen 03/02/19 03/02/19 03/02/19 07:00 07:00 07:00 WBC 13.3 H RBC 4.49 Hgb 13.7 Hct 39.8 MCV 88.5 MCH 30.4 MCHC 34.4 RDW 14.4 Plt Count 115 L MPV 9.7 Absolute Neuts (auto) 11.2 H Neutrophils % 84.1 H Neutrophils % (Manual) 83.7 H Band Neutrophils % 0.0 Lymphocytes % 4.4 L Lymphocytes % (Manual) 3.0 L Monocytes % 10.9 H Monocytes % (Manual) 13 H Eosinophils % 0.4 Eosinophils % (Manual) 0.0 Basophils % 0.2 Basophils % (Manual) 0.0 Myelocytes % (Man) 0 Promyelocytes % (Man) 0 Blast Cells % (Manual) 0 Nucleated RBC % 0 Metamyelocytes 0 Hypochromia 0 Platelet Estimate Decreased Polychromasia 0 Poikilocytosis 0 Anisocytosis 0 Microcytosis 0 Macrocytosis 0 PT with INR INR PTT (Actin FS) VBG pH POC VBG pCO2 POC VBG pO2 VBG HCO3 VBG O2 Sat (Herbert) VBG Base Excess Sodium 139 Potassium 3.8 Chloride 105 Carbon Dioxide 26 Anion Gap 7 L BUN 24.2 H Creatinine 1.3 Est GFR (CKD-EPI)AfAm 62.74 Est GFR (CKD-EPI)NonAf 54.13 Random Glucose 99 Lactic Acid Calcium 9.7 Magnesium 2.0 Total Bilirubin 2.4 H Direct Bilirubin 1.8 H AST 19 ALT 32 Alkaline Phosphatase 137 H B-Natriuretic Peptide Total Protein 5.3 L Albumin 2.4 L Lipase Urine Color Urine Appearance Urine pH Ur Specific [place] Urine Protein Urine Glucose (UA) Urine Ketones Urine Blood Urine Nitrite Urine Bilirubin Urine Urobilinogen Ur Leukocyte Esterase Urine WBC (Auto) Urine RBC (Auto) Urine Casts (Auto) U Pathogenic Cast Auto U Epithel Cells (Auto) Urine Bacteria (Auto) HIV 1&2 Antibody Screen Cancelled HIV P24 Antigen Cancelled Blood Type Antibody Screen 03/02/19 03/02/19 03/02/19 07:00 07:00 07:00 WBC RBC Hgb Hct MCV MCH MCHC RDW Plt Count MPV Absolute Neuts (auto) Neutrophils % Neutrophils % (Manual) Band Neutrophils % Lymphocytes % Lymphocytes % (Manual) Monocytes % Monocytes % (Manual) Eosinophils % Eosinophils % (Manual) Basophils % Basophils % (Manual) Myelocytes % (Man) Promyelocytes % (Man) Blast Cells % (Manual) Nucleated RBC % Metamyelocytes Hypochromia Platelet Estimate Polychromasia Poikilocytosis Anisocytosis Microcytosis Macrocytosis PT with INR 15.20 H INR 1.28 H PTT (Actin FS) 33.1 VBG pH POC VBG pCO2 POC VBG pO2 VBG HCO3 VBG O2 Sat (Herbert) VBG Base Excess Sodium Potassium Chloride Carbon Dioxide Anion Gap BUN Creatinine Est GFR (CKD-EPI)AfAm Est GFR (CKD-EPI)NonAf Random Glucose Lactic Acid Calcium Magnesium Total Bilirubin Direct Bilirubin AST ALT Alkaline Phosphatase B-Natriuretic Peptide Total Protein Albumin Lipase 64 L Urine Color Urine Appearance Urine pH Ur Specific [place] Urine Protein Urine Glucose (UA) Urine Ketones Urine Blood Urine Nitrite Urine Bilirubin Urine Urobilinogen Ur Leukocyte Esterase Urine WBC (Auto) Urine RBC (Auto) Urine Casts (Auto) U Pathogenic Cast Auto U Epithel Cells (Auto) Urine Bacteria (Auto) HIV 1&2 Antibody Screen HIV P24 Antigen Blood Type O POSITIVE Antibody Screen Negative Current Medications Generic Name Dose Route Start Last Admin Trade Name Freq PRN Reason Stop Dose Admin Acetaminophen 1,000 mg 03/02/19 01:46 Ofirmev Injection - IVPB Q6H PRN PAIN OR FEVER Meropenem 1 gm/ Dextrose 100 mls @ 200 mls/hr 03/02/19 02:30 IVPB Q8H-IV RAPHAEL Meropenem 1 gm/ Dextrose 100 mls @ 100 mls/hr 03/02/19 02:30 03/02/19 09:17 IVPB 03/02/19 18:59 100 mls/hr Q8H-IV RAPHAEL Administration Lactated Ringer's 1,000 ml in 1,000 mls @ 100 mls/hr 03/02/19 02:45 03/02/19 03:06 Lactated Ringers Solution IV 100 mls/hr ASDIR RAPHAEL Administration Miscellaneous 1 each 03/02/19 22:00 Lidoderm Patch Removal MC DAILY@2200 [facility] Morphine Sulfate 4 mg 03/02/19 02:37 Morphine Sulfate IVPUSH Q4H PRN PAIN LEVEL 6-10 Tamsulosin HCl 0.4 mg 03/02/19 08:30 03/02/19 10:55 Flomax - PO 0.4 mg DAILY@0830 [facility] Administration Home Medications Medication Instructions Recorded Aspirin [Children's Aspirin] 81 mg PO DAILY 03/01/19 Glucosamine Sulfate Dipot Chlr 1,000 mg PO DAILY 03/01/19 [Glucosamine] Ibuprofen [Advil -] 400 mg PO DAILY 03/01/19 ASSESSMENT AND PLAN: 73 year old male with history of BPH presented with weakness and urinary retention. CT A/P - 12mm renal stone with moderate hydronephrosis and scattered renal stones. 1. Sepsis secondary to UTI with Obstruction due to Ureteral/R UPJ Stone with Hydronephrosis Obstruction relieved by Dalton insertion. Started on Flomax. Tachycardia, Leukocytosis. Meropenem empirically Urine/Blood cx pending. ID consulted. 2. Hyperbilirubinemia with Thrombocytopenia Acute Hepatitis panel pending. RUQ US - Fatty liver. Multiple Gallstones with borderline GB wall thickening. No cholecystitis clinically - will monitor. 3. R Supra-patella Effusion - requesting Orthopedic evaluation. No evidence of septic arthritis. DVT Px - Heparin SQ.
--- NOTE | 2019-03-02 18:19 | CONSULT ---
Consult - text type - Consultation Consultation Note: ORTHOPEDIC SURGERY CONSULTATION NOTE Department of Orthopedic Surgery HISTORY OF PRESENT ILLNESS Mr. Gee is a 73 year old male who presents to [facility] with a kidney stone, hydronephrosis, and UTI. The orthopedic service was consulted for right knee pain. The patient denies any specific injury and states that he has had this pain for approximately 3 years. The patient notes pain and swelling in his right knee that gets better with rest. Denies any other injuries. Denies numbness, tingling or other constitutional complaints. Denies tobacco use, drug use, alcohol abuse. The patient lives with family and uses no assistive devices at baseline. FAMILY HISTORY non-contributory REVIEW OF SYMPTOMS A twelve-point review of systems was performed and was negative except as noted in HPI. PHYSICAL EXAM Constitutional: Alert and oriented to person, place, and time. Appears well- developed and well-nourished. No acute distress, appropriate mood and affect. Right Lower Extremity: Skin warm, dry, and intact; no lesions, rashes or ulcers noted. Muscle mass equal and symmetric to contralateral side. No atrophy noted. No masses noted. Moderate effusion; Tender to palpation at the medial and lateral joint space of knee; nontender throughout rest of extremity. No cords or calf tenderness No significant calf/ankle edema. Full passive and active ROM, free from pain. Joints stable with no pathologic laxity. EHL/TA/GS motor intact; SILT distally; 2+ DP pulses; Cap refill brisk. Tone and reflexes normal. Able to SLR; Negative log roll. Left Lower Extremity: Skin warm, dry, and intact; no lesions, rashes or ulcers noted. Muscle mass equal and symmetric to contralateral side. No atrophy noted. No masses or effusions noted. No tenderness to palpation all joints; nontender throughout rest of extremity. No cords or calf tenderness No significant calf/ankle edema. Full passive and active ROM, free from pain. Joints stable with no pathologic laxity. EHL/TA/GS motor intact; SILT distally; 2+ DP pulses; Cap refill brisk. Tone and reflexes normal. Active Problems Problem Status Category Onset Hydronephrosis concurrent with and due to calculi of kidney and ureter Acute Medical Renal calculi Acute Medical UTI (urinary tract infection) Acute Medical Ureteral calculus Acute Medical Social History Smoking history Never smoked Hx Alcohol Use Yes: SOCIALLY Allergies Allergy/AdvReac Type Severity Reaction Status Date / Time No Known Allergies Allergy Verified 03/01/19 20:54 Active Medications Generic Name Dose Route Start Last Admin Trade Name Stephen PRN Reason Stop Dose Admin Acetaminophen 1,000 mg 03/02/19 01:46 Ofirmev Injection - IVPB Q6H PRN PAIN OR FEVER Heparin Sodium (Porcine) 5,000 unit 03/02/19 22:00 Heparin - SQ TID RAPHAEL Meropenem 1 gm/ Dextrose 100 mls @ 200 mls/hr 03/02/19 02:30 IVPB Q8H-IV RAPHAEL Meropenem 1 gm/ Dextrose 100 mls @ 100 mls/hr 03/02/19 02:30 03/02/19 09:17 IVPB 03/02/19 18:59 100 mls/hr Q8H-IV RAPHAEL Administration Lactated Ringer's 1,000 ml in 1,000 mls @ 100 mls/hr 03/02/19 02:45 03/02/19 03:06 Lactated Ringers Solution IV 100 mls/hr ASDIR RAPHAEL Administration Miscellaneous 1 each 03/02/19 22:00 Lidoderm Patch Removal MC DAILY@2200 RAPHAEL Morphine Sulfate 4 mg 03/02/19 02:37 Morphine Sulfate IVPUSH Q4H PRN PAIN LEVEL 6-10 Tamsulosin HCl 0.4 mg 03/02/19 08:30 03/02/19 10:55 Flomax - PO 0.4 mg DAILY@0830 RAPHAEL Administration Vital Signs (last) Temp Pulse Resp BP Pulse Ox 99.7 F H 105 H 18 134/58 L 98 03/02/19 14:00 03/02/19 14:00 03/02/19 14:00 03/02/19 14:00 03/02/19 05:09 Intake and Output 02/28/19 03/01/19 03/02/19 23:59 23:59 23:59 Intake Total 300 Output Total 250 Balance 50 Intake: IV 300 LACTATED RINGERS SOLUTION 300 1,000 ml In 1,000 ml @ 100 mls/hr IV ASDIR RAPHAEL Rx#:[id number] Output: Urine 250 Dalton 250 Other: Voiding Method Urinal Indwelling Catheter # Unmeasured Voids Dalton 300 Bowel Movement No Weight 215 lb 212 lb 3.2 oz Height 5 ft 11 in 5 ft 11 in Body Mass Index (BMI) 29.9 29.5 Weight Measurement Method Patient Lift Scale Weight Measurement Method Est/Stated by Patient Laboratory 03/02/19 07:00 03/02/19 07:00 PT with INR 15.20 SEC (9.7-13.0) H 03/02/19 07:00 PTT (Actin FS) 33.1 SECONDS (25.2-36.5) 03/02/19 07:00 IMAGING I personally reviewed all radiographs and other imaging of the right knee. They demonstrate moderate to severe tri-compartental osteoarthritis characterized by joint space narrowing, osteophyte formation, bony sclerosis, and chondrocalcinosis. No fractures, dislocations seen. ASSESSMENT AND PLAN Mr. Gee is a 75 year old male presenting with moderate to severe right knee osteoarthritis. No sigs of septic joint; We have reviewed the imaging and clinical findings in detail, as well as their potential implications. After appropriate informed discussion, we agreed on the following plan: - Pain control - DVT ppx - WBAT RLE - Physical therapy Right Knee - Rest/Ice/Elevate Right knee - No further orthopedic intervention at this time. Recommend right knee MRI as outpatient. All questions were answered. Thank you for involving our team in the care of this patient. Please have patient follow up in our office in 1-2 weeks .
--- NOTE | 2019-03-02 18:42 | CON.ID ---
Consult Consult Specialty:: infectious diseases Referred by:: hospitalist Reason for Consultation:: sepsis,uti - History of Present Illness Chief Complaint: fever,chills,weakness,inability to pass urine History of Present Illness: 73 year old male with no significant PMH. admitted because of weakness, decreased appetite, and urinary hesitancy for the past 5 days. He was consuming beers at a local bar when he took a break to urinate. After urinating, he states that he began to feel very cold and his hands started shaking. After that episode, he developed urinary hesitancy and dribbling with the urine appearing darker than usual. He also developed loss of appetite, and has consumed only liquids since then. There are no associated complaints of abdominal pain, dysuria, hematuria, or incontinence. patient mentions tht he had to strain to pass urine patient finally came to the hospital and now he feels better started on abx - History Source History Provided By: Patient Limitations to Obtaining History: No Limitations - Alcohol/Substance Use Hx Alcohol Use: Yes (SOCIALLY) - Smoking History Smoking history: Never smoked Home Medications - Allergies Allergies/Adverse Reactions: Allergies Allergy/AdvReac Type Severity Reaction Status Date / Time No Known Allergies Allergy Verified 03/01/19 20:54 - Home Medications Home Medications: Ambulatory Orders Aspirin [Children's Aspirin] 81 mg PO DAILY 03/01/19 Glucosamine Sulfate Dipot Chlr [Glucosamine] 1,000 mg PO DAILY 03/01/19 Ibuprofen [Advil -] 400 mg PO DAILY 03/01/19 Review of Systems - Review of Systems Constitutional: reports: Chills, Fever Eyes: reports: No Symptoms HENT: reports: No Symptoms Neck: reports: No Symptoms Cardiovascular: reports: No Symptoms Respiratory: reports: No Symptoms Gastrointestinal: reports: No Symptoms Genitourinary: reports: Incontinence, Urgency Musculoskeletal: reports: No Symptoms Integumentary: reports: No Symptoms Neurological: reports: No Symptoms Endocrine: reports: No Symptoms Hematology/Lymphatic: reports: No Symptoms Psychiatric: reports: No Symptoms Physical Exam Vital Signs: Vital Signs Temperature 99.7 F H 03/02/19 14:00 Pulse Rate 105 H 03/02/19 14:00 Respiratory Rate 18 03/02/19 14:00 Blood Pressure 134/58 L 03/02/19 14:00 O2 Sat by Pulse Oximetry (%) 98 03/02/19 05:09 Constitutional: Yes: No Distress, Calm Cardiovascular: Yes: Regular Rate and Rhythm Respiratory: Yes: Regular, CTA Bilaterally Gastrointestinal: Yes: Normal Bowel Sounds, Soft Musculoskeletal: Yes: WNL Extremities: Yes: WNL Neurological: Yes: Alert, Oriented Psychiatric: Yes: Alert, Oriented Labs: CBC, BMP 03/02/19 07:00 03/02/19 07:00 Imaging - Results Chest X-ray: Report Reviewed, Image Reviewed Cat Scan: Report Reviewed, Image Reviewed Assessment/Plan Rt UVJ stone Rt knee pain Elevated ALP, Bili Leukocytosis Thrombocytopenia bph plan await for all cx reports chaney start patient on zosyn urology on case rest as per the team
[2019-03-02] MEDS: HEPARIN NA (PORCINE) 5,000 UNITS/ML 1ML VIAL SQ SCH (21:08)
[2019-03-02] MEDS ORDERED: LIDOCAINE PATCH REMOVAL MC SCH (22:00)
[2019-03-03] MEDS ORDERED: PIPERACILLIN/TAZOBACTAM 3.375 GM VIAL IVPB ONE ×3 (01:22→18:10)
[2019-03-03] MEDS ORDERED: DEXTROSE 5%-WATER - 50 ML IVPB ONE ×3 (01:23→18:10)
[2019-03-03] MEDS: LACTATED RINGERS SOLUTION 1,000 ML/1,000 ML INFUS.BAG IV SCH ×2 (03:15→19:30)
[2019-03-03] MEDS: PIPERACILLIN/TAZOB 3.375 GM 3.375 GM in DEXTROSE 5%-WATER - 50 ML IVPB SCH ×4 (03:15→18:43)
--- NOTE | 2019-03-03 06:46 | PN ---
Physical Exam: SUBJECTIVE: Patient seen and examined. Denies abd pain. Reports having right thigh pain on IT band when initially started with right knee pain 3 years ago. More alert than yesterday. OBJECTIVE: Vital Signs Period Temp Pulse Resp BP Sys/Hernandez Pulse Ox Last 24 Hr 99.5 F-99.9 F 74-108 18-20 134-143/58-91 98 GENERAL: The patient is awake, alert, and fully oriented, in no acute distress. HEAD: Normal with no signs of trauma. EYES: PERRL, extraocular movements intact, sclera anicteric, conjunctiva clear. No ptosis. ENT: Ears normal, nares patent, moist mucous membranes. NECK: Trachea midline, full range of motion, supple. LUNGS: Breath sounds equal, clear to auscultation bilaterally, no wheezes, no crackles, no accessory muscle use. HEART: Regular rate and irregular rhythm, S1, S2 without murmur, rub or gallop. ABDOMEN: Soft, nontender, nondistended, normoactive bowel sounds. EXTREMITIES: 2+ pulses, warm, well-perfused, no edema. MSK: right IT band tender on palpation, minimal knee swelling NEUROLOGICAL: Cranial nerves II through XII grossly intact. Normal speech, gait not observed. PSYCH: Normal mood, normal affect. SKIN: Warm, dry, normal turgor, no rashes or lesions noted Laboratory Results - last 24 hr 03/01/19 03/02/19 03/02/19 22:15 00:15 07:00 WBC RBC Hgb Hct MCV MCH MCHC RDW Plt Count MPV Absolute Neuts (auto) Neutrophils % Neutrophils % (Manual) Band Neutrophils % Lymphocytes % Lymphocytes % (Manual) Monocytes % Monocytes % (Manual) Eosinophils % Eosinophils % (Manual) Basophils % Basophils % (Manual) Myelocytes % (Man) Promyelocytes % (Man) Blast Cells % (Manual) Nucleated RBC % Metamyelocytes Hypochromia Platelet Estimate Polychromasia Poikilocytosis Anisocytosis Microcytosis Macrocytosis PT with INR INR PTT (Actin FS) Sodium 137 Potassium 3.5 Chloride 104 Carbon Dioxide 23 Anion Gap 10 BUN 22.4 H Creatinine 1.2 Est GFR (CKD-EPI)AfAm 69.11 Est GFR (CKD-EPI)NonAf 59.63 Random Glucose 128 H Lactic Acid 1.6 Calcium 9.9 Magnesium Total Bilirubin 2.8 H Direct Bilirubin 1.9 H AST 23 ALT 38 Alkaline Phosphatase 159 H B-Natriuretic Peptide 1089.2 H Total Protein 5.6 L Albumin 2.6 L Lipase Hep A IgM Ab Confirm Hep Bs Antigen Hep B Core IgM Ab Hepatitis C Ab (EIA) HIV 1&2 Ag/Ab, 4th Gen HIV 1&2 Antibody Screen HIV P24 Antigen Blood Type O POSITIVE Antibody Screen 03/02/19 03/02/19 03/02/19 07:00 07:00 07:00 WBC 13.3 H RBC 4.49 Hgb 13.7 Hct 39.8 MCV 88.5 MCH 30.4 MCHC 34.4 RDW 14.4 Plt Count 115 L MPV 9.7 Absolute Neuts (auto) 11.2 H Neutrophils % 84.1 H Neutrophils % (Manual) 83.7 H Band Neutrophils % 0.0 Lymphocytes % 4.4 L Lymphocytes % (Manual) 3.0 L Monocytes % 10.9 H Monocytes % (Manual) 13 H Eosinophils % 0.4 Eosinophils % (Manual) 0.0 Basophils % 0.2 Basophils % (Manual) 0.0 Myelocytes % (Man) 0 Promyelocytes % (Man) 0 Blast Cells % (Manual) 0 Nucleated RBC % 0 Metamyelocytes 0 Hypochromia 0 Platelet Estimate Decreased Polychromasia 0 Poikilocytosis 0 Anisocytosis 0 Microcytosis 0 Macrocytosis 0 PT with INR INR PTT (Actin FS) Sodium 139 Potassium 3.8 Chloride 105 Carbon Dioxide 26 Anion Gap 7 L BUN 24.2 H Creatinine 1.3 Est GFR (CKD-EPI)AfAm 62.74 Est GFR (CKD-EPI)NonAf 54.13 Random Glucose 99 Lactic Acid Calcium 9.7 Magnesium 2.0 Total Bilirubin 2.4 H Direct Bilirubin 1.8 H AST 19 ALT 32 Alkaline Phosphatase 137 H B-Natriuretic Peptide Total Protein 5.3 L Albumin 2.4 L Lipase Hep A IgM Ab Confirm Negative Hep Bs Antigen Negative Hep B Core IgM Ab Negative Hepatitis C Ab (EIA) <0.1 HIV 1&2 Ag/Ab, 4th Gen Non reactive HIV 1&2 Antibody Screen HIV P24 Antigen Blood Type Antibody Screen 03/02/19 03/02/19 03/02/19 07:00 07:00 07:00 WBC RBC Hgb Hct MCV MCH MCHC RDW Plt Count MPV Absolute Neuts (auto) Neutrophils % Neutrophils % (Manual) Band Neutrophils % Lymphocytes % Lymphocytes % (Manual) Monocytes % Monocytes % (Manual) Eosinophils % Eosinophils % (Manual) Basophils % Basophils % (Manual) Myelocytes % (Man) Promyelocytes % (Man) Blast Cells % (Manual) Nucleated RBC % Metamyelocytes Hypochromia Platelet Estimate Polychromasia Poikilocytosis Anisocytosis Microcytosis Macrocytosis PT with INR 15.20 H INR 1.28 H PTT (Actin FS) 33.1 Sodium Potassium Chloride Carbon Dioxide Anion Gap BUN Creatinine Est GFR (CKD-EPI)AfAm Est GFR (CKD-EPI)NonAf Random Glucose Lactic Acid Calcium Magnesium Total Bilirubin Direct Bilirubin AST ALT Alkaline Phosphatase B-Natriuretic Peptide Total Protein Albumin Lipase 64 L Hep A IgM Ab Confirm Hep Bs Antigen Hep B Core IgM Ab Hepatitis C Ab (EIA) HIV 1&2 Ag/Ab, 4th Gen HIV 1&2 Antibody Screen Cancelled HIV P24 Antigen Cancelled Blood Type Antibody Screen 03/02/19 07:00 WBC RBC Hgb Hct MCV MCH MCHC RDW Plt Count MPV Absolute Neuts (auto) Neutrophils % Neutrophils % (Manual) Band Neutrophils % Lymphocytes % Lymphocytes % (Manual) Monocytes % Monocytes % (Manual) Eosinophils % Eosinophils % (Manual) Basophils % Basophils % (Manual) Myelocytes % (Man) Promyelocytes % (Man) Blast Cells % (Manual) Nucleated RBC % Metamyelocytes Hypochromia Platelet Estimate Polychromasia Poikilocytosis Anisocytosis Microcytosis Macrocytosis PT with INR INR PTT (Actin FS) Sodium Potassium Chloride Carbon Dioxide Anion Gap BUN Creatinine Est GFR (CKD-EPI)AfAm Est GFR (CKD-EPI)NonAf Random Glucose Lactic Acid Calcium Magnesium Total Bilirubin Direct Bilirubin AST ALT Alkaline Phosphatase B-Natriuretic Peptide Total Protein Albumin Lipase Hep A IgM Ab Confirm Hep Bs Antigen Hep B Core IgM Ab Hepatitis C Ab (EIA) HIV 1&2 Ag/Ab, 4th Gen HIV 1&2 Antibody Screen HIV P24 Antigen Blood Type O POSITIVE Antibody Screen Negative Active Medications Generic Name Dose Route Start Last Admin Trade Name Freq PRN Reason Stop Dose Admin Acetaminophen 1,000 mg 03/02/19 01:46 Ofirmev Injection - IVPB Q6H PRN PAIN OR FEVER Heparin Sodium (Porcine) 5,000 unit 03/02/19 22:00 03/02/19 21:08 Heparin - SQ 5,000 unit TID RAPHAEL Administration Lactated Ringer's 1,000 ml in 1,000 mls @ 100 mls/hr 03/02/19 02:45 03/03/19 03:15 Lactated Ringers Solution IV 100 mls/hr ASDIR RAPHAEL Administration Piperacillin Sod/Tazobactam 50 mls @ 100 mls/hr 03/03/19 02:00 03/03/19 03:15 Sod 3.375 gm/ Dextrose IVPB 100 mls/hr Q8H-IV RAPHAEL Administration Protocol Miscellaneous 1 each 03/02/19 22:00 03/02/19 21:04 Lidoderm Patch Removal MC Not Given DAILY@2200 [facility] Morphine Sulfate 4 mg 03/02/19 02:37 Morphine Sulfate IVPUSH Q4H PRN PAIN LEVEL 6-10 Tamsulosin HCl 0.4 mg 03/02/19 08:30 03/02/19 10:55 Flomax - PO 0.4 mg DAILY@0830 RAPHAEL Administration ASSESSMENT/PLAN: Mr. Gee is a 73yo male with no known PMH who presents with weakness, urinary hesitancy, and chronic knee pain on 03/01/19. Pt found to have complicated UTI 2/2 nephrolithiasis and osteoarthritis. #complicated UTI 2/2 nephrolithiasis Pt had 5 days of urinary hesitancy, dribbling, chills, and weakness. WBC 12.2, improving. BUN 23.2, improving. UA showed + nitrites, +1 leuk esterase, +3 blood , +3 protein, +[address] showed 1.2x0.9cm stone just prior to right ureterovesical junction, mild right renal hydronephrosis, mild to mod hydroureter and minimal perinephric fluid. Enlarged prostate with small calcifications. Received dose of ceftriaxone and meropenem. -flomax -paredes -Dr. [place] urology consulted-stent insertion, finasteride started -Dr. Rey JONES consulted-started Zosyn -pain control-morphine 4mg Q4H PRN -CMP, CBC -urine culture lactose fermenting gram negative bacilli #leukocytosis -Zosyn -CBC #right knee osteoarthritis Pt has chronic knee pain x 3 years. X-ray showed OA and small suprapatellar joint effusion. No acute fx. Upon further questioning, pt also had IT band pain around time of knee pain onset. Pt denied sciatica pain in back, thigh, or leg. -Dr. Yisel soliman consulted- no evidence of septic joint, weight baring as tolerated, RICE, pain control, outpt MRI suggested as well as f/u, ortho signed off -PT consult after urological procedure #thrombocytopenia resolved #hyperbilirubinemia 2.8-->2.4-->2.0. U/S fatty liver disease vs hepatocellular disease. Multiple gallstones with mild gallbladder wall thickening. No pericholecystic fluid. Afebrile. -MRCP requested -CMP trend #elevated BNP 1089.2. No prior comparison. pt denies cp, sob -repeat BNP #alcohol use pt drinks ~7 beers 3-4 days/wk x 55 years #screening Pt reports not going to the doctor in 30 years. Given unknown medical hx will run labs for chronic conditions that may affect tx. -HbA1C- 4.8 -lipid panel- total chol 67, LDL 39, HDL 11 FEN LR 100mL/hr monitor lytes regular diet DVT Ppe heparin Visit type - Emergency Visit Emergency Visit: Yes ED Registration Date: 03/02/19 Care time: The patient presented to the Emergency Department on the above date and was hospitalized for further evaluation of their emergent condition. - New Patient This patient is new to me today: No - Critical Care Critical Care patient: No - Discharge Referral Referred to [facility] Med P.C[facility] No ATTENDING PHYSICIAN STATEMENT I saw and evaluated the patient. I reviewed the resident's note and discussed the case with the resident. I agree with the resident's findings and plan as documented. SUBJECTIVE: OBJECTIVE: ASSESSMENT AND PLAN:
[2019-03-03] MEDS: HEPARIN NA (PORCINE) 5,000 UNITS/ML 1ML VIAL SQ SCH ×3 (07:02→22:38)
[2019-03-03 07:21] LABS: BASO % 0.2 % (0-2.0); EOS % 0.7 % (0-4.5); HEMATOCRIT 37.3 % (35.4-49); HEMOGLOBIN 13.1 GM/dL (11.7-16.9); LYMPH % 4.8 % (8-40); MCH 30.5 pg (25.7-33.7); MCHC 35.1 g/dl (32.0-35.9); MEAN CELL VOLUME 86.9 fl (80-96); MEAN PLT VOLUME 9.1 fl (7.5-11.1); MONO % 10.3 % (3.8-10.2); PLATELET COUNT 147 K/MM3 (134-434); RDW 14.3 % (11.9-15.9); WHITE BLOOD COUNT 12.2 K/mm3 (4.0-10.0)
[2019-03-03 07:46] LABS: ALBUMIN 1.9 g/dl (3.4-5.0); BLOOD UREA NITROGEN 23.2 mg/dL (7-18); CALCIUM 9.4 mg/dL (8.5-10.1); CHOLESTEROL 67 mg/dL (50-200); CREATININE 0.9 mg/dL (0.55-1.3); HDL CHOLESTEROL 11 mg/dL (40-60); POTASSIUM 3.2 mmol/L (3.5-5.1); TOT PROT 4.7 g/dl (6.4-8.2); TRIGLYCERIDES 110 mg/dL (0-150)
[2019-03-03] MEDS: TAMSULOSIN HCL 0.4 MG CAP PO SCH (08:16)
[2019-03-03] MEDS: KCL 10 MEQ IVPB 10 MEQ/100 ML INFUS.BAG IVPB SCH ×3 (08:52→13:45)
--- NOTE | 2019-03-03 09:58 | PN ---
Progress Note, Physician History of Present Illness: patient doing well no issues - Current Medication List Current Medications: Active Medications Acetaminophen (Ofirmev Injection -) 1,000 mg IVPB Q6H PRN PRN Reason: PAIN OR FEVER Heparin Sodium (Porcine) (Heparin -) 5,000 unit SQ TID [facility] Last Admin: 03/03/19 07:02 Dose: Not Given Lactated Ringer's (Lactated Ringers Solution) 1,000 ml in 1,000 mls @ 100 mls/ hr IV ASDIR [facility] Last Admin: 03/03/19 03:15 Dose: 100 mls/hr Piperacillin Sod/Tazobactam (Sod 3.375 gm/ Dextrose) 50 mls @ 100 mls/hr IVPB Q8H-IV RAPHAEL; Protocol Last Admin: 03/03/19 03:15 Dose: 100 mls/hr Potassium Chloride (Potassium Chloride 10 Meq Premix Ivpb -) 10 meq in 100 mls @ 100 mls/hr IVPB Q60M [facility] Stop: 03/03/19 11:29 Last Admin: 03/03/19 08:52 Dose: 100 mls/hr Miscellaneous (Lidoderm Patch Removal) 1 each MC DAILY@2200 [facility] Last Admin: 03/02/19 21:04 Dose: Not Given Morphine Sulfate (Morphine Sulfate) 4 mg IVPUSH Q4H PRN PRN Reason: PAIN LEVEL 6-10 Tamsulosin HCl (Flomax -) 0.4 mg PO DAILY@0830 [facility] Last Admin: 03/03/19 08:16 Dose: Not Given - Objective Vital Signs: Vital Signs Temperature 98.3 F 03/03/19 09:25 Pulse Rate 100 H 03/03/19 09:25 Respiratory Rate 20 03/03/19 09:25 Blood Pressure 129/54 L 03/03/19 09:25 O2 Sat by Pulse Oximetry (%) 98 03/02/19 21:00 Constitutional: Yes: No Distress, Calm Cardiovascular: Yes: S1, S2 Respiratory: Yes: Regular, CTA Bilaterally Gastrointestinal: Yes: Normal Bowel Sounds, Soft Musculoskeletal: Yes: WNL Extremities: Yes: WNL Neurological: Yes: Alert, Oriented Psychiatric: Yes: Alert, Oriented Labs: CBC, BMP 03/03/19 06:55 03/03/19 06:55 INR, PTT INR 1.28 (0.83-1.09) H 03/02/19 07:00 Assessment/Plan Rt UVJ stone Rt knee pain Elevated ALP, Bili Leukocytosis Thrombocytopenia bph plan awaiting for organism identification continue abx
--- NOTE | 2019-03-03 13:36 | PN ---
Teaching Attending Note Name of Resident: Ruth Ann Boateng ATTENDING PHYSICIAN STATEMENT I saw and evaluated the patient. I reviewed the resident's note and discussed the case with the resident. I agree with the resident's findings and plan as documented. SUBJECTIVE: Feels well. No ongoing pain. No fever/chills. OBJECTIVE: Afebrile, Hemodynamically Stable. Last Vital Signs Temp Pulse Resp BP Pulse Ox 98.3 F 100 H 20 129/54 L 96 03/03/19 09:25 03/03/19 09:25 03/03/19 09:25 03/03/19 09:25 03/03/19 09:00 Heart - S1, S2, RRR Lungs - good air entry bilaterally Abdomen- Soft, non-tender. Bowel Sounds normal. Extremities - no calf tenderness. Laboratory Results - last 24 hr 03/02/19 03/03/19 03/03/19 07:00 06:55 06:55 WBC 12.2 H RBC 4.30 Hgb 13.1 Hct 37.3 MCV 86.9 MCH 30.5 MCHC 35.1 RDW 14.3 Plt Count 147 D MPV 9.1 Absolute Neuts (auto) 10.3 H Neutrophils % 84.0 H Lymphocytes % 4.8 L Monocytes % 10.3 H Eosinophils % 0.7 Basophils % 0.2 Nucleated RBC % 0 Sodium 138 Potassium 3.2 L Chloride 106 Carbon Dioxide 23 Anion Gap 10 BUN 23.2 H Creatinine 0.9 Est GFR (CKD-EPI)AfAm 97.86 Est GFR (CKD-EPI)NonAf 84.43 Random Glucose 94 Hemoglobin A1c % Calcium 9.4 Total Bilirubin 2.0 H AST 22 ALT 26 Alkaline Phosphatase 114 Total Protein 4.7 L Albumin 1.9 L Triglycerides Cholesterol Total LDL Cholesterol HDL Cholesterol Hep A IgM Ab Confirm Negative Hep Bs Antigen Negative Hep B Core IgM Ab Negative Hepatitis C Ab (EIA) <0.1 HIV 1&2 Ag/Ab, 4th Gen Non reactive 03/03/19 03/03/19 06:55 06:55 WBC RBC Hgb Hct MCV MCH MCHC RDW Plt Count MPV Absolute Neuts (auto) Neutrophils % Lymphocytes % Monocytes % Eosinophils % Basophils % Nucleated RBC % Sodium Potassium Chloride Carbon Dioxide Anion Gap BUN Creatinine Est GFR (CKD-EPI)AfAm Est GFR (CKD-EPI)NonAf Random Glucose Hemoglobin A1c % 4.8 Calcium Total Bilirubin AST ALT Alkaline Phosphatase Total Protein Albumin Triglycerides 110 Cholesterol 67 Total LDL Cholesterol 39 HDL Cholesterol 11 L Hep A IgM Ab Confirm Hep Bs Antigen Hep B Core IgM Ab Hepatitis C Ab (EIA) HIV 1&2 Ag/Ab, 4th Gen Current Medications Generic Name Dose Route Start Last Admin Trade Name Freq PRN Reason Stop Dose Admin Acetaminophen 1,000 mg 03/02/19 01:46 Ofirmev Injection - IVPB Q6H PRN PAIN OR FEVER Heparin Sodium (Porcine) 5,000 unit 03/02/19 22:00 03/03/19 07:02 Heparin - SQ Not Given TID RAPHAEL Lactated Ringer's 1,000 ml in 1,000 mls @ 100 mls/hr 03/02/19 02:45 03/03/19 03:15 Lactated Ringers Solution IV 100 mls/hr ASDIR RAPHAEL Administration Piperacillin Sod/Tazobactam 50 mls @ 100 mls/hr 03/03/19 02:00 03/03/19 10:50 Sod 3.375 gm/ Dextrose IVPB 100 mls/hr Q8H-IV RAPHAEL Administration Protocol Miscellaneous 1 each 03/02/19 22:00 03/02/19 21:04 Lidoderm Patch Removal MC Not Given DAILY@2200 [facility] Morphine Sulfate 4 mg 03/02/19 02:37 Morphine Sulfate IVPUSH Q4H PRN PAIN LEVEL 6-10 Tamsulosin HCl 0.4 mg 03/02/19 08:30 03/03/19 08:16 Flomax - PO Not Given DAILY@0830 [facility] Home Medications Medication Instructions Recorded Aspirin [Children's Aspirin] 81 mg PO DAILY 03/01/19 Glucosamine Sulfate Dipot Chlr 1,000 mg PO DAILY 03/01/19 [Glucosamine] Ibuprofen [Advil -] 400 mg PO DAILY 03/01/19 ASSESSMENT AND PLAN: 73 year old male with history of BPH presented with weakness and urinary retention. CT A/P - 12mm renal stone with moderate hydronephrosis and scattered renal stones. 1. Sepsis secondary to UTI with Obstruction due to Ureteral/R UPJ Stone with Hydronephrosis Obstruction relieved by Dalton insertion. Started on Flomax. Tachycardia, Leukocytosis - improving Urine Cx - LFNB. Blood Cx negative. ID consulted - on Zosyn. Evaluated by Urology - for Cystoscoy and R JJ Stent placement today. 2. Hyperbilirubinemia - direct Acute Hepatitis panel negative RUQ US - Fatty liver. Multiple Gallstones with borderline GB wall thickening. No cholecystitis clinically - will monitor. MRCP requested to exclude obstruction. 3. R Supra-patella Effusion - severe DJD, no septic arthritis as per Ortho - recommends RICE and out-patient MRI. 4. Hypokalemia - repleted. DVT Px - Heparin SQ.
--- NOTE | 2019-03-03 15:30 | EKG ---
Test Reason : Blood Pressure : / mmHG Vent. Rate : 096 BPM Atrial Rate : 096 BPM P-R Int : 222 ms QRS Dur : 096 ms QT Int : 350 ms P-R-T Axes : 076 -27 009 degrees QTc Int : 442 ms POOR DATA QUALITY, INTERPRETATION MAY BE ADVERSELY AFFECTED SINUS RHYTHM WITH 1ST DEGREE A-V BLOCK WITH FREQUENT PREMATURE VENTRICULAR COMPLEXES OTHERWISE NORMAL ECG WHEN COMPARED WITH ECG OF 02-MAR-2019 03:12, NO SIGNIFICANT CHANGE WAS FOUND Confirmed by JHONNY WASHINGTON MD ([id number]) on 03/03/2019 3:29:54 PM Referred By: Confirmed By:JHONNY WASHINGTON MD
[2019-03-03] MEDS ORDERED: PROPOFOL 20 ML ONE (16:28)
[2019-03-03] MEDS ORDERED: ONDANSETRON 4 MG/2 ML VIAL IVPUSH PRN ×2 (17:05→18:21)
--- NOTE | 2019-03-03 17:18 | OP ---
Operative Note - Note: Operative Date: 03/03/19 Pre-Operative Diagnosis: R ureteral calculus, R hydronephrosis, UTI, BPH Operation: cystoscopy R JJ stent insertion Anesthesiologist/PAPER BAG MAKER: Nighat Mills Anesthesia: General Estimated Blood Loss (mls): 0 Drains & Tubes with Location: 6 fr 26 cm R JJ stent, 18 fr paredes Operative Report Dictated: Yes
[2019-03-03] MEDS ORDERED: DEXAMETHASONE SOD PHOSPHATE 4 MG/1 ML VIAL ONE (17:35)
[2019-03-03] MEDS ORDERED: MORPHINE SULFATE 2 MG/ML VIAL IVPUSH PRN (18:21)
[2019-03-03] MEDS ORDERED: ACETAMINOPHEN 1000 MG/100 ML VIAL (NON FORMULARY) IVPB PRN (18:21)
[2019-03-03] MEDS ORDERED: morphine SULFATE 4 MG/ML VIAL IVPUSH PRN (18:28)
[2019-03-03 19:15] LABS: BILIRUBIN,DIRECT 1.4 mg/dL (0.0-0.2)
[2019-03-03] MEDS ORDERED: LIDOCAINE PATCH REMOVAL MC SCH (22:00)
--- NOTE | 2019-03-03 22:23 | OP ---
DATE OF OPERATION: 03/03/2019 PREOPERATIVE DIAGNOSIS: Right ureteral calculus, right hydronephrosis, urinary tract infection, benign prostatic hypertrophy. POSTOPERATIVE DIAGNOSIS: Right ureteral calculus, right hydronephrosis, urinary tract infection, benign prostatic hypertrophy. PROCEDURE: Cystoscopy, right double J stent insertion. SURGEON: Morales Jeter MD FITNESS COACH: None. ANESTHESIA: General via laryngeal mask. ANESTHESIOLOGIST: Nighat Mills DO SPECIMEN: None. CULTURES: None. DRAINS: A 6-Kazakh 26-cm right double J stent and an 18-Kazakh Dalton catheter. ESTIMATED BLOOD LOSS: None. COMPLICATIONS: None. DESCRIPTION OF PROCEDURE: Patient was brought into the operating room. Placed on the operating room table in supine position. After administration of general sedation via laryngeal mask, intravenous antibiotics were administered. Sequential compression devices were placed. Patient was placed in the dorsal lithotomy position. Indwelling Dalton catheter was removed. Genitals were prepped and draped in the usual sterile manner. A 22-Kazakh cystoscope was inserted into the bladder under direct vision. Anterior urethra was normal. The prostatic urethra measured approximately 6 cm in length and demonstrated severe bilobar occlusion. The bladder was entered and thoroughly inspected. There were no foreign bodies, tumors, stones, or inflammation. Both ureteral orifices were in their usual location with diminished efflux on the right. There were heavy bladder trabeculations. The right ureteral orifice was cannulated with a 0.038 guidewire, which was advanced to the level of the right renal pelvis under fluoroscopic and direct visual guidance. Open-end ureteral catheter was inserted. Retrograde pyelogram was done. Demonstrated moderate right hydronephrosis down to an obstructing radiopaque stone in the distal right ureter. The guidewire was replaced, and the open-end ureteral catheter was removed. Now a 6-Kazakh 26-cm double J stent was inserted over the guidewire under direct visual and fluoroscopic guidance leaving 1 coil in the renal pelvis and 1 coil in the bladder. The bladder was left full. Cystoscope removed. An 18-Kazakh Dalton catheter was placed, 10 mL was placed in the balloon and placed on gravity drainage. Tolerated the procedure well. Transferred to recovery room in stable condition. PLAN: Continue antibiotics and Dalton for UTI. Continue finasteride and tamsulosin. Follow up for right ureteroscopic laser lithotripsy after his UTI has resolved. MORALES JETER M.D. SUSAN/[id number]
[2019-03-04] MEDS: HEPARIN NA (PORCINE) 5,000 UNITS/ML 1ML VIAL SQ SCH ×3 (06:15→21:56)
[2019-03-04] MEDS: LACTATED RINGERS SOLUTION 1,000 ML/1,000 ML INFUS.BAG IV SCH ×3 (06:17→18:33)
[2019-03-04 07:18] LABS: BASO % 0.1 % (0-2.0); EOS % 0.2 % (0-4.5); HEMATOCRIT 40.7 % (35.4-49); HEMOGLOBIN 13.7 GM/dL (11.7-16.9); LYMPH % 5.2 % (8-40); MCHC 33.6 g/dl (32.0-35.9); MEAN CELL VOLUME 89.2 fl (80-96); MEAN PLT VOLUME 9.7 fl (7.5-11.1); NEUT % 86.5 % (42.8-82.8); PLATELET COUNT 205 K/MM3 (134-434); RBC 4.57 M/mm3 (4.00-5.60); RDW 14.3 % (11.9-15.9); WHITE BLOOD COUNT 13.8 K/mm3 (4.0-10.0)
[2019-03-04 07:40] LABS: BILIRUBIN,TOTAL 1.1 mg/dL (0.2-1); BLOOD UREA NITROGEN 24.9 mg/dL (7-18); CALCIUM 9.3 mg/dL (8.5-10.1); CREATININE 0.9 mg/dL (0.55-1.3); N-TERMINAL BNP 1593.7 pg/ml (5-125); POTASSIUM 3.9 mmol/L (3.5-5.1); TOT PROT 4.9 g/dl (6.4-8.2)
--- NOTE | 2019-03-04 09:49 | PN ---
Progress Note, Physician History of Present Illness: patient stable wbc has mildly increased - Current Medication List Current Medications: Active Medications Acetaminophen (Ofirmev Injection -) 1,000 mg IVPB Q6H PRN PRN Reason: PAIN OR FEVER Finasteride (Proscar -) 5 mg PO DAILY [facility] Heparin Sodium (Porcine) (Heparin -) 5,000 unit SQ TID [facility] Last Admin: 03/04/19 06:15 Dose: 5,000 unit Lactated Ringer's (Lactated Ringers Solution) 1,000 ml in 1,000 mls @ 100 mls/ hr IV ASDIR RAPHAEL Last Admin: 03/04/19 06:17 Dose: 100 mls/hr Piperacillin Sod/Tazobactam (Sod 3.375 gm/ Dextrose) 50 mls @ 100 mls/hr IVPB Q8H-IV RAPHAEL; Protocol Last Admin: 03/03/19 18:43 Dose: 50 mls Miscellaneous (Lidoderm Patch Removal) 1 each MC DAILY@2200 [facility] Last Admin: 03/03/19 22:40 Dose: Not Given Morphine Sulfate (Morphine Sulfate) 4 mg IVPUSH Q4H PRN PRN Reason: PAIN LEVEL 6-10 Tamsulosin HCl (Flomax -) 0.4 mg PO DAILY@0830 [facility] - Objective Vital Signs: Vital Signs Temperature 98.6 F 03/04/19 02:39 Pulse Rate 88 03/04/19 02:39 Respiratory Rate 18 03/04/19 02:39 Blood Pressure 145/87 03/04/19 02:39 O2 Sat by Pulse Oximetry (%) 95 03/03/19 21:00 Constitutional: Yes: No Distress, Calm Cardiovascular: Yes: S1, S2 Respiratory: Yes: Regular, CTA Bilaterally Gastrointestinal: Yes: Normal Bowel Sounds, Soft Musculoskeletal: Yes: WNL Extremities: Yes: WNL Neurological: Yes: Alert, Oriented Psychiatric: Yes: Alert, Oriented Labs: CBC, BMP 03/04/19 06:25 03/04/19 06:23 INR, PTT INR 1.28 (0.83-1.09) H 03/02/19 07:00 Assessment/Plan Rt UVJ stone Rt knee pain Elevated ALP, Bili Leukocytosis Thrombocytopenia bph plan post stent placement continue current mgmt abx rest as per the team mri of the abd done monitor bili
[2019-03-04] MEDS ORDERED: FINASTERIDE 5 MG TABLET (FP) PO SCH (10:00)
[2019-03-04 10:12] LABS: ANISOCYTOSIS 0; MACROCYTOSIS 0; PLATELET ESTIMATE NORMAL
[2019-03-04] MEDS ORDERED: DEXTROSE 5%-WATER - 50 ML IVPB ONE ×2 (10:45→16:53)
[2019-03-04] MEDS ORDERED: PIPERACILLIN/TAZOBACTAM 3.375 GM VIAL IVPB ONE ×2 (10:45→16:53)
[2019-03-04] MEDS: TAMSULOSIN HCL 0.4 MG CAP PO SCH (10:52)
[2019-03-04] MEDS: FINASTERIDE 5 MG TABLET (FP) PO SCH (10:53)
[2019-03-04] MEDS: PIPERACILLIN/TAZOB 3.375 GM 3.375 GM in DEXTROSE 5%-WATER - 50 ML IVPB SCH ×2 (10:53→18:32)
--- NOTE | 2019-03-04 12:01 | PN ---
Teaching Attending Note Name of Resident: Ruth Ann Boateng ATTENDING PHYSICIAN STATEMENT I saw and evaluated the patient. I reviewed the resident's note and discussed the case with the resident. I agree with the resident's findings and plan as documented. SUBJECTIVE: Feels better - no further flank pain. No fever/chills. OBJECTIVE: Afebrile, Hemodynamically Stable. Last Vital Signs Temp Pulse Resp BP Pulse Ox 98.0 F 78 18 141/88 95 03/04/19 09:53 03/04/19 09:53 03/04/19 09:53 03/04/19 09:53 03/03/19 21:00 Heart - S1, S2, RRR Lungs - good air entry bilaterally Abdomen- Soft, non-tender. Bowel Sounds normal. Extremities - no calf tenderness. Laboratory Results - last 24 hr 03/03/19 03/04/19 03/04/19 06:55 06:23 06:25 WBC 13.8 H RBC 4.57 Hgb 13.7 Hct 40.7 MCV 89.2 MCH 30.0 MCHC 33.6 RDW 14.3 Plt Count 205 D MPV 9.7 Absolute Neuts (auto) 12.0 H Neutrophils % 86.5 H Neutrophils % (Manual) 81.0 Band Neutrophils % 0.0 Lymphocytes % 5.2 L Lymphocytes % (Manual) 10.0 D Monocytes % 8.0 Monocytes % (Manual) 8 Eosinophils % 0.2 Eosinophils % (Manual) 0.0 Basophils % 0.1 Basophils % (Manual) 0.0 Myelocytes % (Man) 0 Promyelocytes % (Man) 1 D Blast Cells % (Manual) 0 Nucleated RBC % 0 Metamyelocytes 0 Hypochromia 0 Platelet Estimate Normal Polychromasia 0 Poikilocytosis 0 Anisocytosis 0 Microcytosis 0 Macrocytosis 0 Sodium 138 140 Potassium 3.2 L 3.9 Chloride 106 107 Carbon Dioxide 23 29 Anion Gap 10 5 L BUN 23.2 H 24.9 H Creatinine 0.9 0.9 Est GFR (CKD-EPI)AfAm 97.86 97.86 Est GFR (CKD-EPI)NonAf 84.43 84.43 Random Glucose 94 126 H Calcium 9.4 9.3 Total Bilirubin 2.0 H 1.1 H Direct Bilirubin 1.4 H Indirect Bilirubin 0.6 GGT 65 AST 22 27 ALT 26 32 Alkaline Phosphatase 114 123 H B-Natriuretic Peptide 1593.7 H Total Protein 4.7 L 4.9 L Albumin 1.9 L 2.0 L Current Medications Generic Name Dose Route Start Last Admin Trade Name Stephen PRN Reason Stop Dose Admin Acetaminophen 1,000 mg 03/03/19 18:21 Ofirmev Injection - IVPB Q6H PRN PAIN OR FEVER Finasteride 5 mg 03/04/19 10:00 03/04/19 10:53 Proscar - PO 5 mg DAILY RAPHAEL Administration Heparin Sodium (Porcine) 5,000 unit 03/03/19 22:00 03/04/19 06:15 Heparin - SQ 5,000 unit TID RAPHAEL Administration Lactated Ringer's 1,000 ml in 1,000 mls @ 100 mls/hr 03/03/19 18:21 03/04/19 06:17 Lactated Ringers Solution IV 100 mls/hr ASDIR RAPHAEL Administration Piperacillin Sod/Tazobactam 50 mls @ 100 mls/hr 03/04/19 02:00 03/04/19 10:53 Sod 3.375 gm/ Dextrose IVPB 100 mls/hr Q8H-IV RAPHAEL Administration Protocol Miscellaneous 1 each 03/03/19 22:00 03/03/19 22:40 Lidoderm Patch Removal MC Not Given DAILY@2200 [facility] Morphine Sulfate 4 mg 03/03/19 18:28 Morphine Sulfate IVPUSH Q4H PRN PAIN LEVEL 6-10 Tamsulosin HCl 0.4 mg 03/04/19 08:30 03/04/19 10:52 Flomax - PO 0.4 mg DAILY@0830 RAPHAEL Administration Home Medications Medication Instructions Recorded Aspirin [Children's Aspirin] 81 mg PO DAILY 03/01/19 Glucosamine Sulfate Dipot Chlr 1,000 mg PO DAILY 03/01/19 [Glucosamine] Ibuprofen [Advil -] 400 mg PO DAILY 03/01/19 ASSESSMENT AND PLAN: 73 year old male with history of BPH presented with weakness and urinary retention. CT A/P - 12mm renal stone with moderate hydronephrosis and scattered renal stones. 1. Sepsis secondary to UTI with Obstruction due to Ureteral/R UPJ Stone with Hydronephrosis Obstruction relieved by Dalton insertion. Started on Flomax/Finasteride. Tachycardia, Leukocytosis - improved Urine Cx - Ecoli. Blood Cx negative. Treated with IV Zosyn. Evaluated by Urology - s/p Cystoscopy and R JJ Stent placement 03/03 Medically optimized for discharge with out-patient Urology follow up. Oral Abx course as per ID. Urology to provide guidance re:TOV versus D/C with Dalton and outpatient TOV at urology office. 2. Hyperbilirubinemia - direct - improving Acute Hepatitis panel negative RUQ US - Fatty liver. Multiple Gallstones with borderline GB wall thickening. No cholecystitis clinically - will monitor. MRCP - no biliary obstruction. Repeat LFTs next week. 3. R Supra-patella Effusion - severe DJD, no septic arthritis as per Ortho - recommends RICE and out-patient MRI. Ortho out-patient follow up. 4. Hypokalemia - repleted. 5. Bilateral renal Cysts on MRI - for out-patient Urology follow up. DVT Px - Heparin SQ. Dispo - medically optimized for discharge with visiting nurse. Discussed with CM
--- NOTE | 2019-03-04 14:08 | PN ---
Physical Exam: SUBJECTIVE: Patient seen and examined. OBJECTIVE: Vital Signs Period Temp Pulse Resp BP Sys/Hernandez Pulse Ox Last 24 Hr 98.0 F-99.4 F 78-100 16-26 138-152/55-88 95-97 GENERAL: The patient is awake, alert, and fully oriented, in no acute distress. HEAD: Normal with no signs of trauma. EYES: PERRL, extraocular movements intact, sclera anicteric, conjunctiva clear. No ptosis. ENT: Ears normal, nares patent, oropharynx clear without exudates, moist mucous membranes. NECK: Trachea midline, full range of motion, supple. LUNGS: Breath sounds equal, clear to auscultation bilaterally, no wheezes, no crackles, no accessory muscle use. HEART: Regular rate and rhythm, S1, S2 without murmur, rub or gallop. ABDOMEN: Soft, nontender, nondistended, normoactive bowel sounds, no guarding, no rebound, no hepatosplenomegaly, no masses. EXTREMITIES: 2+ pulses, warm, well-perfused, no edema. NEUROLOGICAL: Cranial nerves II through XII grossly intact. Normal speech, gait not observed. PSYCH: Normal mood, normal affect. SKIN: Warm, dry, normal turgor, no rashes or lesions noted Laboratory Results - last 24 hr 03/03/19 03/04/19 03/04/19 06:55 06:23 06:25 WBC 13.8 H RBC 4.57 Hgb 13.7 Hct 40.7 MCV 89.2 MCH 30.0 MCHC 33.6 RDW 14.3 Plt Count 205 D MPV 9.7 Absolute Neuts (auto) 12.0 H Neutrophils % 86.5 H Neutrophils % (Manual) 81.0 Band Neutrophils % 0.0 Lymphocytes % 5.2 L Lymphocytes % (Manual) 10.0 D Monocytes % 8.0 Monocytes % (Manual) 8 Eosinophils % 0.2 Eosinophils % (Manual) 0.0 Basophils % 0.1 Basophils % (Manual) 0.0 Myelocytes % (Man) 0 Promyelocytes % (Man) 1 D Blast Cells % (Manual) 0 Nucleated RBC % 0 Metamyelocytes 0 Hypochromia 0 Platelet Estimate Normal Polychromasia 0 Poikilocytosis 0 Anisocytosis 0 Microcytosis 0 Macrocytosis 0 Sodium 138 140 Potassium 3.2 L 3.9 Chloride 106 107 Carbon Dioxide 23 29 Anion Gap 10 5 L BUN 23.2 H 24.9 H Creatinine 0.9 0.9 Est GFR (CKD-EPI)AfAm 97.86 97.86 Est GFR (CKD-EPI)NonAf 84.43 84.43 Random Glucose 94 126 H Calcium 9.4 9.3 Total Bilirubin 2.0 H 1.1 H Direct Bilirubin 1.4 H Indirect Bilirubin 0.6 GGT 65 AST 22 27 ALT 26 32 Alkaline Phosphatase 114 123 H B-Natriuretic Peptide 1593.7 H Total Protein 4.7 L 4.9 L Albumin 1.9 L 2.0 L Active Medications Generic Name Dose Route Start Last Admin Trade Name Freq PRN Reason Stop Dose Admin Acetaminophen 1,000 mg 03/03/19 18:21 Ofirmev Injection - IVPB Q6H PRN PAIN OR FEVER Finasteride 5 mg 03/04/19 10:00 03/04/19 10:53 Proscar - PO 5 mg DAILY RAPHAEL Administration Heparin Sodium (Porcine) 5,000 unit 03/03/19 22:00 03/04/19 06:15 Heparin - SQ 5,000 unit TID RAPHAEL Administration Lactated Ringer's 1,000 ml in 1,000 mls @ 100 mls/hr 03/03/19 18:21 03/04/19 06:17 Lactated Ringers Solution IV 100 mls/hr ASDIR RAPHAEL Administration Piperacillin Sod/Tazobactam 50 mls @ 100 mls/hr 03/04/19 02:00 03/04/19 10:53 Sod 3.375 gm/ Dextrose IVPB 100 mls/hr Q8H-IV RAPHAEL Administration Protocol Miscellaneous 1 each 03/03/19 22:00 03/03/19 22:40 Lidoderm Patch Removal MC Not Given DAILY@2200 RAPHAEL Morphine Sulfate 4 mg 03/03/19 18:28 Morphine Sulfate IVPUSH Q4H PRN PAIN LEVEL 6-10 Tamsulosin HCl 0.4 mg 03/04/19 08:30 03/04/19 10:52 Flomax - PO 0.4 mg DAILY@0830 RAPHAEL Administration ASSESSMENT/PLAN: ASSESSMENT/PLAN: Mr. Gee is a 73yo male with no known PMH who presents with weakness, urinary hesitancy, and chronic knee pain on 03/01/19. Pt found to have complicated UTI 2/2 nephrolithiasis and osteoarthritis. Elevated bili prompted and US which showed gallstones no #complicated UTI 2/2 nephrolithiasis Pt had 5 days of urinary hesitancy, dribbling, chills, and weakness. WBC 12.2, improving. BUN 23.2, improving. UA showed + nitrites, +1 leuk esterase, +3 blood , +3 protein, +[address] showed 1.2x0.9cm stone just prior to right ureterovesical junction, mild right renal hydronephrosis, mild to mod hydroureter and minimal perinephric fluid. Enlarged prostate with small calcifications. Received dose of ceftriaxone and meropenem. -flomax -paredes -Dr. Cleveland urology consulted-stent insertion, finasteride started -Dr. Le ID consulted-started Zosyn -pain control-morphine 4mg Q4H PRN -CMP, CBC -urine culture lactose fermenting gram negative bacilli #leukocytosis -Zosyn -CBC #right knee osteoarthritis Pt has chronic knee pain x 3 years. X-ray showed OA and small suprapatellar joint effusion. No acute fx. Upon further questioning, pt also had IT band pain around time of knee pain onset. Pt denied sciatica pain in back, thigh, or leg. -Dr. Yisel soliman consulted- no evidence of septic joint, weight baring as tolerated, RICE, pain control, outpt MRI suggested as well as f/u, ortho signed off -PT consult after urological procedure #thrombocytopenia resolved #hyperbilirubinemia 2.8-->2.4-->2.0. U/S fatty liver disease vs hepatocellular disease. Multiple gallstones with mild gallbladder wall thickening. No pericholecystic fluid. Afebrile. -MRCP requested -CMP trend #elevated BNP 1089.2. No prior comparison. pt denies cp, sob -repeat BNP #alcohol use pt drinks ~7 beers 3-4 days/wk x 55 years #screening Pt reports not going to the doctor in 30 years. Given unknown medical hx will run labs for chronic conditions that may affect tx. -HbA1C- 4.8 -lipid panel- total chol 67, LDL 39, HDL 11 FEN LR 100mL/hr monitor lytes regular diet DVT Ppe heparin ATTENDING PHYSICIAN STATEMENT I saw and evaluated the patient. I reviewed the resident's note and discussed the case with the resident. I agree with the resident's findings and plan as documented. SUBJECTIVE: OBJECTIVE: ASSESSMENT AND PLAN:
--- NOTE | 2019-03-04 15:51 | DS ---
Physical Exam: SUBJECTIVE: Patient seen and examined. He is OBJECTIVE: Vital Signs Period Temp Pulse Resp BP Sys/Hernandez Pulse Ox Last 24 Hr 97.8 F-99.4 F 78-100 16-26 132-146/55-88 95-97 PHYSICAL EXAM GENERAL: The patient is awake, alert, and fully oriented, in no acute distress. HEAD: Normal with no signs of trauma. EYES: PERRL, extraocular movements intact, sclera anicteric, conjunctiva clear. ENT: Ears normal, nares patent, oropharynx clear without exudates, moist mucous membranes. NECK: Trachea midline, full range of motion, supple. LUNGS: Breath sounds equal, clear to auscultation bilaterally, no wheezes, no crackles, no accessory muscle use. HEART: Regular rate and rhythm, S1, S2 without murmur, rub or gallop. ABDOMEN: Soft, nontender, nondistended, normoactive bowel sounds, no guarding, no rebound, no hepatosplenomegaly, no masses. EXTREMITIES: 2+ pulses, warm, well-perfused, no edema. NEUROLOGICAL: Cranial nerves II through XII grossly intact. Normal speech, gait not observed. PSYCH: Normal mood, normal affect. SKIN: Warm, dry, normal turgor, no rashes or lesions noted. LABS Laboratory Results - last 24 hr 03/03/19 03/04/19 03/04/19 06:55 06:23 06:25 WBC 13.8 H RBC 4.57 Hgb 13.7 Hct 40.7 MCV 89.2 MCH 30.0 MCHC 33.6 RDW 14.3 Plt Count 205 D MPV 9.7 Absolute Neuts (auto) 12.0 H Neutrophils % 86.5 H Neutrophils % (Manual) 81.0 Band Neutrophils % 0.0 Lymphocytes % 5.2 L Lymphocytes % (Manual) 10.0 D Monocytes % 8.0 Monocytes % (Manual) 8 Eosinophils % 0.2 Eosinophils % (Manual) 0.0 Basophils % 0.1 Basophils % (Manual) 0.0 Myelocytes % (Man) 0 Promyelocytes % (Man) 1 D Blast Cells % (Manual) 0 Nucleated RBC % 0 Metamyelocytes 0 Hypochromia 0 Platelet Estimate Normal Polychromasia 0 Poikilocytosis 0 Anisocytosis 0 Microcytosis 0 Macrocytosis 0 Sodium 138 140 Potassium 3.2 L 3.9 Chloride 106 107 Carbon Dioxide 23 29 Anion Gap 10 5 L BUN 23.2 H 24.9 H Creatinine 0.9 0.9 Est GFR (CKD-EPI)AfAm 97.86 97.86 Est GFR (CKD-EPI)NonAf 84.43 84.43 Random Glucose 94 126 H Calcium 9.4 9.3 Total Bilirubin 2.0 H 1.1 H Direct Bilirubin 1.4 H Indirect Bilirubin 0.6 GGT 65 AST 22 27 ALT 26 32 Alkaline Phosphatase 114 123 H B-Natriuretic Peptide 1593.7 H Total Protein 4.7 L 4.9 L Albumin 1.9 L 2.0 L HOSPITAL COURSE: Mr. Gee is a 73yo male with no known PMH who presents with weakness, urinary hesitancy, and chronic knee pain on 03/01/19. Pt had 5 days of urinary hesitancy, dribbling, chills, and weakness. He had a nitrite positive urinalysis and culture grew E. coli. He was diagnosed with complicated UTI and treated with Zosyn. He also had 1.2x0.9cm stone just prior to right ureterovesical junction and hydronephrosis. Dr. Cleveland placed a stent and pt was started on Flomax and finasteride. CT and U/S showed inconsistent abnormalities of liver and suggested correlation with labs. Pt initially presented with hyperbilirubinemia which resolved over the course. He had an x-ray that showed OA and joint effusion. Dr. Morillo will see him outpatient. His BNP was elevated above 1000. He will follow up with Dr. Gifford. Date of Admission:03/02/19 Date of Discharge: 03/04/19 Discharge Summary Reason For Visit: URINARY TRACT INFECTION Current Active Problems BPH (benign prostatic hyperplasia) (Acute) Hydronephrosis concurrent with and due to calculi of kidney and ureter (Acute) Renal calculi (Acute) UTI (urinary tract infection) (Acute) Ureteral calculus (Acute) Condition: Stable - Instructions Diet, Activity, Other Instructions: Your Hospital Visit: You were treated in the hospital because you had a kidney stone that caused an urinary tract infection. You were treated with IV antibiotics. You will need to take antibiotics after you are discharged, as well. Ultrasound and CT scan showed you had gallstones which are not causing an infection as well as a large liver. The EKG done here showed you have an irregular heart beat sometimes and your rhythm is abnormal but not an emergency. It is important you take your medications and follow up for these conditions. Medications: You may continue your home medications. You are being prescribed tamsulosin and finasteride to help you urinate more easily. You are also being prescribed to finish treating your urinary tract infection. Please follow up with the following doctors: -------- for follow up labs to discuss your liver Dr. Cleveland with urology within [address] Gifford with cardiology within [address] Morillo with orthopedics within 1 month Please present to the nearest emergency room if you experience any mental status changes, chest pain, sudden shortness of breath, and abdominal pain. Referrals: Morales Cleveland MD [Staff Physician] - Timothy Gifford MD [Staff Physician] - Christian Morillo DO [Staff Physician] - - Home Medications Comprehensive Discharge Medication List: Ambulatory Orders Aspirin [Children's Aspirin] 81 mg PO DAILY 03/01/19 Glucosamine Sulfate Dipot Chlr [Glucosamine] 1,000 mg PO DAILY 03/01/19 Amoxicillin/Potassium Clav [Augmentin 500-125 Tablet] 1 each PO BID 7 Days #14 tablet 03/04/19 Finasteride [Proscar -] 5 mg PO DAILY #30 tablet 03/04/19 Tamsulosin HCl [Flomax -] 0.4 mg PO DAILY 30 Days #30 cap.er.24h 03/04/19 - Discharge Referral Referred to [facility] No ATTENDING PHYSICIAN STATEMENT I saw and evaluated the patient. I reviewed the resident's note and discussed the case with the resident. I agree with the resident's findings and plan as documented. SUBJECTIVE: OBJECTIVE: ASSESSMENT AND PLAN:
--- NOTE | 2019-03-04 17:30 | PN ---
Physical Exam: SUBJECTIVE: Patient seen and examined. He is more awake today. Still limited appetite but was eating breakfast. He denies any abdominal or back pain, fever, chills. OBJECTIVE: Vital Signs Period Temp Pulse Resp BP Sys/Hernandez Pulse Ox Last 24 Hr 97.8 F-99.4 F 78-100 16-26 132-146/55-88 95-97 GENERAL: The patient is awake, alert, and fully oriented, in no acute distress. HEAD: Normal with no signs of trauma. EYES: PERRL, extraocular movements intact, sclera anicteric, conjunctiva clear. No ptosis. ENT: Ears normal, nares patent, moist mucous membranes. NECK: Trachea midline, full range of motion, supple. LUNGS: Breath sounds equal, clear to auscultation bilaterally, no wheezes, no crackles, no accessory muscle use. HEART: Regular rate and rhythm, S1, S2 without murmur, rub or gallop. ABDOMEN: Soft, nontender, nondistended, normoactive bowel sounds EXTREMITIES: 2+ pulses, warm, well-perfused, no edema. right knee swelling, not erythematous NEUROLOGICAL: Cranial nerves II through XII grossly intact. Normal speech, gait not observed. PSYCH: Normal mood, normal affect. SKIN: Warm, dry, normal turgor, no rashes or lesions noted Laboratory Results - last 24 hr 03/03/19 03/04/19 03/04/19 06:55 06:23 06:25 WBC 13.8 H RBC 4.57 Hgb 13.7 Hct 40.7 MCV 89.2 MCH 30.0 MCHC 33.6 RDW 14.3 Plt Count 205 D MPV 9.7 Absolute Neuts (auto) 12.0 H Neutrophils % 86.5 H Neutrophils % (Manual) 81.0 Band Neutrophils % 0.0 Lymphocytes % 5.2 L Lymphocytes % (Manual) 10.0 D Monocytes % 8.0 Monocytes % (Manual) 8 Eosinophils % 0.2 Eosinophils % (Manual) 0.0 Basophils % 0.1 Basophils % (Manual) 0.0 Myelocytes % (Man) 0 Promyelocytes % (Man) 1 D Blast Cells % (Manual) 0 Nucleated RBC % 0 Metamyelocytes 0 Hypochromia 0 Platelet Estimate Normal Polychromasia 0 Poikilocytosis 0 Anisocytosis 0 Microcytosis 0 Macrocytosis 0 Sodium 138 140 Potassium 3.2 L 3.9 Chloride 106 107 Carbon Dioxide 23 29 Anion Gap 10 5 L BUN 23.2 H 24.9 H Creatinine 0.9 0.9 Est GFR (CKD-EPI)AfAm 97.86 97.86 Est GFR (CKD-EPI)NonAf 84.43 84.43 Random Glucose 94 126 H Calcium 9.4 9.3 Total Bilirubin 2.0 H 1.1 H Direct Bilirubin 1.4 H Indirect Bilirubin 0.6 GGT 65 AST 22 27 ALT 26 32 Alkaline Phosphatase 114 123 H B-Natriuretic Peptide 1593.7 H Total Protein 4.7 L 4.9 L Albumin 1.9 L 2.0 L Active Medications Generic Name Dose Route Start Last Admin Trade Name Freq PRN Reason Stop Dose Admin Acetaminophen 1,000 mg 03/03/19 18:21 Ofirmev Injection - IVPB Q6H PRN PAIN OR FEVER Finasteride 5 mg 03/04/19 10:00 03/04/19 10:53 Proscar - PO 5 mg DAILY RAPHAEL Administration Heparin Sodium (Porcine) 5,000 unit 03/03/19 22:00 03/04/19 14:44 Heparin - SQ 5,000 unit TID RAPHAEL Administration Lactated Ringer's 1,000 ml in 1,000 mls @ 100 mls/hr 03/03/19 18:21 03/04/19 14:42 Lactated Ringers Solution IV 100 mls/hr ASDIR RAPHAEL Administration Piperacillin Sod/Tazobactam 50 mls @ 100 mls/hr 03/04/19 02:00 03/04/19 10:53 Sod 3.375 gm/ Dextrose IVPB 100 mls/hr Q8H-IV RAPHAEL Administration Protocol Morphine Sulfate 4 mg 03/03/19 18:28 Morphine Sulfate IVPUSH Q4H PRN PAIN LEVEL 6-10 Tamsulosin HCl 0.4 mg 03/04/19 08:30 03/04/19 10:52 Flomax - PO 0.4 mg DAILY@0830 RAPHAEL Administration ASSESSMENT/PLAN: Mr. Gee is a 73yo male with no known PMH who presents with weakness, urinary hesitancy, and chronic knee pain on 03/01/19. Pt found to have complicated UTI 2/2 nephrolithiasis and osteoarthritis. #complicated UTI 2/2 nephrolithiasis Pt had 5 days of urinary hesitancy, dribbling, chills, and weakness. WBC 13.8. BUN 24.9. CT showed 1.2x0.9cm stone just prior to right ureterovesical junction , mild right renal hydronephrosis, mild to mod hydroureter and minimal perinephric fluid. Enlarged prostate with small calcifications. -flomax -paredes-d/c'ed -stent placed -finasteride -urine culture grew Ecoli- currently on Zosyn-will begin Augmentin x 7 days at discharge #leukocytosis -currently on abx #right knee osteoarthritis -PT #thrombocytopenia resolved #hyperbilirubinemia, resolving 2.8-->2.4-->2.0-->1.1. U/S fatty liver disease vs hepatocellular disease. Multiple gallstones with mild gallbladder wall thickening. No pericholecystic fluid. Afebrile. -MRI/MRCP spleenomegaly, no bile duct dilatation #elevated BNP 1500. No prior comparison. pt denies cp, sob -f/u cards #alcohol use pt drinks ~7 beers 3-4 days/wk x 55 years #screening Pt reports not going to the doctor in 30 years. Given unknown medical hx will run labs for chronic conditions that may affect tx. -HbA1C- 4.8 -lipid panel- total chol 67, LDL 39, HDL 11 FEN LR 100mL/hr monitor lytes regular diet DVT Ppe heparin Visit type - Emergency Visit Emergency Visit: Yes ED Registration Date: 03/02/19 Care time: The patient presented to the Emergency Department on the above date and was hospitalized for further evaluation of their emergent condition. - New Patient This patient is new to me today: No - Critical Care Critical Care patient: No ATTENDING PHYSICIAN STATEMENT I saw and evaluated the patient. I reviewed the resident's note and discussed the case with the resident. I agree with the resident's findings and plan as documented. SUBJECTIVE: OBJECTIVE: ASSESSMENT AND PLAN:
[2019-03-05] MEDS ORDERED: DEXTROSE 5%-WATER - 50 ML IVPB ONE ×3 (00:54→16:39)
[2019-03-05] MEDS ORDERED: PIPERACILLIN/TAZOBACTAM 3.375 GM VIAL IVPB ONE ×2 (00:54→09:24)
[2019-03-05] MEDS: LACTATED RINGERS SOLUTION 1,000 ML/1,000 ML INFUS.BAG IV SCH (01:30)
[2019-03-05] MEDS: PIPERACILLIN/TAZOB 3.375 GM 3.375 GM in DEXTROSE 5%-WATER - 50 ML IVPB SCH ×2 (01:31→09:35)
[2019-03-05] MEDS: HEPARIN NA (PORCINE) 5,000 UNITS/ML 1ML VIAL SQ SCH ×3 (05:20→21:03)
[2019-03-05 09:22] LABS: HEMATOCRIT 37.4 % (35.4-49); HEMOGLOBIN 12.9 GM/dL (11.7-16.9); MCH 30.4 pg (25.7-33.7); MCHC 34.6 g/dl (32.0-35.9); PLATELET COUNT 249 K/MM3 (134-434); RBC 4.25 M/mm3 (4.00-5.60); RDW 14.5 % (11.9-15.9); WHITE BLOOD COUNT 11.1 K/mm3 (4.0-10.0)
[2019-03-05 09:32] LABS: BILIRUBIN,DIRECT 0.7 mg/dL (0.0-0.2); BLOOD UREA NITROGEN 19.8 mg/dL (7-18); CALCIUM 9.3 mg/dL (8.5-10.1); CREATININE 0.9 mg/dL (0.55-1.3); POTASSIUM 3.6 mmol/L (3.5-5.1); TOT PROT 4.9 g/dl (6.4-8.2)
[2019-03-05] MEDS: FINASTERIDE 5 MG TABLET (FP) PO SCH (09:34)
[2019-03-05] MEDS: TAMSULOSIN HCL 0.4 MG CAP PO SCH (09:34)
--- NOTE | 2019-03-05 11:47 | PN ---
Teaching Attending Note Name of Resident: Vj Rosado ATTENDING PHYSICIAN STATEMENT I saw and evaluated the patient. I reviewed the resident's note and discussed the case with the resident. I agree with the resident's findings and plan as documented. SUBJECTIVE: Feels better - no further flank pain. No fever/chills. No dysuria/ hematuria. OBJECTIVE: Afebrile, Hemodynamically Stable. Last Vital Signs Temp Pulse Resp BP Pulse Ox 98.5 F 76 18 157/87 95 03/05/19 05:14 03/05/19 05:14 03/05/19 05:14 03/05/19 05:14 03/04/19 21:00 Heart - S1, S2, RRR Lungs - good air entry bilaterally Abdomen- Soft, non-tender. Bowel Sounds normal. Extremities - no calf tenderness. Laboratory Results - last 24 hr 03/05/19 03/05/19 08:40 08:40 WBC 11.1 H RBC 4.25 Hgb 12.9 Hct 37.4 MCV 88.0 MCH 30.4 MCHC 34.6 RDW 14.5 Plt Count 249 D MPV 9.0 Sodium 140 Potassium 3.6 Chloride 105 Carbon Dioxide 27 Anion Gap 8 BUN 19.8 H Creatinine 0.9 Est GFR (CKD-EPI)AfAm 97.86 Est GFR (CKD-EPI)NonAf 84.43 Random Glucose 110 H Calcium 9.3 Total Bilirubin 1.0 Direct Bilirubin 0.7 H AST 40 H ALT 44 Alkaline Phosphatase 132 H Total Protein 4.9 L Albumin 2.0 L Current Medications Generic Name Dose Route Start Last Admin Trade Name Freq PRN Reason Stop Dose Admin Acetaminophen 1,000 mg 03/03/19 18:21 Ofirmev Injection - IVPB Q6H PRN PAIN OR FEVER Finasteride 5 mg 03/04/19 10:00 03/05/19 09:34 Proscar - PO 5 mg DAILY RAPHAEL Administration Heparin Sodium (Porcine) 5,000 unit 03/03/19 22:00 03/05/19 05:20 Heparin - SQ 5,000 unit TID RAPHAEL Administration Piperacillin Sod/Tazobactam 50 mls @ 100 mls/hr 03/04/19 02:00 03/05/19 09:35 Sod 3.375 gm/ Dextrose IVPB 100 mls/hr Q8H-IV RAPHAEL Administration Protocol Morphine Sulfate 4 mg 03/03/19 18:28 Morphine Sulfate IVPUSH Q4H PRN PAIN LEVEL 6-10 Tamsulosin HCl 0.4 mg 03/04/19 08:30 03/05/19 09:34 Flomax - PO 0.4 mg DAILY@0830 [facility] Administration Discharge Medications Medication Instructions Recorded Aspirin [Children's Aspirin] 81 mg PO DAILY 03/01/19 Glucosamine Sulfate Dipot Chlr 1,000 mg PO DAILY 03/01/19 [Glucosamine] Amoxicillin/Potassium Clav 1 each PO BID 7 Days #14 tablet 03/04/19 [Augmentin 500-125 Tablet] Finasteride [Proscar -] 5 mg PO DAILY #30 tablet 03/04/19 Tamsulosin HCl [Flomax -] 0.4 mg PO DAILY 30 Days #30 03/04/19 cap.er.24h ASSESSMENT AND PLAN: 73 year old male with history of BPH presented with weakness and urinary retention. CT A/P - 12mm renal stone with moderate hydronephrosis and scattered renal stones. 1. Sepsis secondary to UTI with Obstruction due to Ureteral/R UPJ Stone with Hydronephrosis - sepsis resolved Started on Flomax/Finasteride. Voiding spontaneously s/p paredes removal. Tachycardia, Leukocytosis - improved Urine Cx - Ecoli. Blood Cx negative. Treated with IV Zosyn. Evaluated by Urology - s/p Cystoscopy and R JJ Stent placement 03/03. Medically optimized for discharge with out-patient Urology follow up. Oral Abx course as per ID. Follow up with urology as out-patient. 2. Hyperbilirubinemia - direct - improving Acute Hepatitis panel negative RUQ US - Fatty liver. Multiple Gallstones with borderline GB wall thickening. No cholecystitis clinically MRCP - no biliary obstruction. Repeat LFTs next week. 3. R Supra-patella Effusion - severe DJD, no septic arthritis as per Ortho - recommends RICE and out-patient MRI. Ortho out-patient follow up. 4. Hypokalemia - repleted. 5. Bilateral renal Cysts on MRI - for out-patient Urology follow up. DVT Px - Heparin SQ. Dispo - medically optimized for discharge with visiting nurse. Discussed with CM
--- NOTE | 2019-03-05 14:12 | PN ---
Progress Note, Physician History of Present Illness: Pt seen and examined. States he feels well. Denies dysuria or current Rt knee pain, and remains afebrile, wbc trending down. Orthopedic evaluation noted. - Current Medication List Current Medications: Active Medications Acetaminophen (Ofirmev Injection -) 1,000 mg IVPB Q6H PRN PRN Reason: PAIN OR FEVER Finasteride (Proscar -) 5 mg PO DAILY [facility] Last Admin: 03/05/19 09:34 Dose: 5 mg Heparin Sodium (Porcine) (Heparin -) 5,000 unit SQ TID [facility] Last Admin: 03/05/19 05:20 Dose: 5,000 unit Piperacillin Sod/Tazobactam (Sod 3.375 gm/ Dextrose) 50 mls @ 100 mls/hr IVPB Q8H-IV RAPHAEL; Protocol Last Admin: 03/05/19 09:35 Dose: 100 mls/hr Morphine Sulfate (Morphine Sulfate) 4 mg IVPUSH Q4H PRN PRN Reason: PAIN LEVEL 6-10 Tamsulosin HCl (Flomax -) 0.4 mg PO DAILY@0830 [facility] Last Admin: 03/05/19 09:34 Dose: 0.4 mg - Objective Vital Signs: Vital Signs Temperature 98.4 F 03/05/19 10:14 Pulse Rate 76 03/05/19 10:14 Respiratory Rate 18 03/05/19 10:14 Blood Pressure 156/89 03/05/19 10:14 O2 Sat by Pulse Oximetry (%) 95 03/04/19 21:00 Constitutional: Yes: No Distress, Calm Cardiovascular: Yes: Regular Rate and Rhythm Respiratory: Yes: CTA Bilaterally Gastrointestinal: Yes: Normal Bowel Sounds, Soft Genitourinary: Yes: WNL Musculoskeletal: Yes: Other (Rt knee edema, no erythema/warmth/tenderness) Integumentary: Yes: WNL Neurological: Yes: Alert, Oriented Labs: CBC, BMP 03/05/19 08:40 03/05/19 08:40 INR, PTT INR 1.28 (0.83-1.09) H 03/02/19 07:00 Microbiology 03/02/19 07:15 Blood - Peripheral Venous Blood Culture - Preliminary NO GROWTH OBTAINED AFTER 72 HOURS, INCUBATION TO CONTINUE FOR 2 DAYS. 03/02/19 07:00 Blood - Peripheral Venous Blood Culture - Preliminary NO GROWTH OBTAINED AFTER 72 HOURS, INCUBATION TO CONTINUE FOR 2 DAYS. 03/02/19 00:20 Urine - Urine Clean Catch Urine Culture - Final Escherichia Coli - ....Imaging X-ray: Report Reviewed MRI: Report Reviewed Assessment/Plan Complicated UTI Obstructing Rt UVJ stone s/p stent hydronephrosis Leukocytosis BPH -- d/c Zosyn, switch to Ceftriaxone -- continue monitor cbc, wbc trending down/thrombocytopenia resolved, pt afebrile
--- NOTE | 2019-03-05 14:17 | PN ---
Physical Exam: SUBJECTIVE: Patient seen and examined at bedside this morning. Dalton catheter was removed yesterday, and patient urinating without dysuria, or hematuria. Denies subjective fevers, chills. OBJECTIVE: Vital Signs Period Temp Pulse Resp BP Sys/Hernandez Pulse Ox Last 24 Hr 97.6 F-98.7 F 70-78 18-20 132-157/74-89 95 GENERAL: The patient is awake, alert, and fully oriented, in no acute distress. HEAD: Normal with no signs of trauma. EYES: PERRL, extraocular movements intact, sclera anicteric, conjunctiva clear ENT: Oropharynx clear without exudates, moist mucous membranes. NECK: Trachea midline, full range of motion, supple. LUNGS: Breath sounds equal, clear to auscultation bilaterally, no wheezes, no crackles. HEART: Regular rate and rhythm, S1, S2 without murmur, rub or gallop. ABDOMEN: Soft, nontender, nondistended, normoactive bowel sounds, no guarding, no rebound, no hepatosplenomegaly, no masses. EXTREMITIES: 2+ radial, dorsalis pedis pulses, warm, well-perfused. No edema bilateral lower extremities. NEUROLOGICAL: Cranial nerves II through XII grossly intact. Normal speech. PSYCH: Normal mood, normal affect. SKIN: Warm, dry. Laboratory Results - last 24 hr 03/05/19 03/05/19 08:40 08:40 WBC 11.1 H RBC 4.25 Hgb 12.9 Hct 37.4 MCV 88.0 MCH 30.4 MCHC 34.6 RDW 14.5 Plt Count 249 D MPV 9.0 Sodium 140 Potassium 3.6 Chloride 105 Carbon Dioxide 27 Anion Gap 8 BUN 19.8 H Creatinine 0.9 Est GFR (CKD-EPI)AfAm 97.86 Est GFR (CKD-EPI)NonAf 84.43 Random Glucose 110 H Calcium 9.3 Total Bilirubin 1.0 Direct Bilirubin 0.7 H AST 40 H ALT 44 Alkaline Phosphatase 132 H Total Protein 4.9 L Albumin 2.0 L Active Medications Generic Name Dose Route Start Last Admin Trade Name Freq PRN Reason Stop Dose Admin Acetaminophen 1,000 mg 03/03/19 18:21 Ofirmev Injection - IVPB Q6H PRN PAIN OR FEVER Finasteride 5 mg 03/04/19 10:00 03/05/19 09:34 Proscar - PO 5 mg DAILY RAPHAEL Administration Heparin Sodium (Porcine) 5,000 unit 03/03/19 22:00 03/05/19 05:20 Heparin - SQ 5,000 unit TID RAPHAEL Administration Piperacillin Sod/Tazobactam 50 mls @ 100 mls/hr 03/04/19 02:00 03/05/19 09:35 Sod 3.375 gm/ Dextrose IVPB 100 mls/hr Q8H-IV RAPHAEL Administration Protocol Morphine Sulfate 4 mg 03/03/19 18:28 Morphine Sulfate IVPUSH Q4H PRN PAIN LEVEL 6-10 Tamsulosin HCl 0.4 mg 03/04/19 08:30 03/05/19 09:34 Flomax - PO 0.4 mg DAILY@0830 RAPHAEL Administration ASSESSMENT/PLAN: Patient is a 73 year old male with history of BPH admitted for sepsis secondary to UTI. Sepsis, secondary to acute complicated UTI -CT abdomen, pelvis upon admission revealed 12 mm right renal stone with hydronephrosis -Urology recommendations (Dr. Cleveland) appreciated. Patient is s/p right JJ stent placement 03/03. -Dalton catheter discontinued 03/04 -Flomax, Finasteride -Urine culture positive for E. coli -ID recommendations (Dr. Corley) appreciated. Zosyn switched to Ceftriaxone IV. Right knee osteoarthritis -Patient will follow up with orthopedic surgery as outpatient for MRI -Physical therapy evaluation Hyperbilirubinemia, resolving -U/S fatty liver disease vs hepatocellular disease. Multiple gallstones with mild gallbladder wall thickening. No pericholecystic fluid. -MRCP reveals no bile duct obstruction. Bilateral renal cysts -Incidental finding on MRI. Patient will follow up with primary care physician , urology. FEN -No IV fluids indicated. -Follow CMP, replete as necessary. -Regular diet Prophylaxis -Heparin 5000units subq TID Disposition -Continue care in medical surgical floor, pending authorization from [facility]. Visit type - Emergency Visit Emergency Visit: Yes ED Registration Date: 03/02/19 Care time: The patient presented to the Emergency Department on the above date and was hospitalized for further evaluation of their emergent condition. - New Patient This patient is new to me today: Yes Date on this admission: 03/05/19 - Critical Care Critical Care patient: No - Discharge Referral Referred to [facility] Med P.C.: No ATTENDING PHYSICIAN STATEMENT I saw and evaluated the patient. I reviewed the resident's note and discussed the case with the resident. I agree with the resident's findings and plan as documented. SUBJECTIVE: OBJECTIVE: ASSESSMENT AND PLAN:
[2019-03-05] MEDS ORDERED: cefTRIAXone SODIUM 1 GM VIAL ONE (16:38)
[2019-03-05] MEDS: CEFTRIAXONE 1 GM in DEXTROSE 5%-WATER - 50 ML IVPB SCH (16:42)
[2019-03-06] MEDS: HEPARIN NA (PORCINE) 5,000 UNITS/ML 1ML VIAL SQ SCH ×3 (05:31→21:27)
[2019-03-06 06:14] LABS: HEMATOCRIT 37.6 % (35.4-49); HEMOGLOBIN 13.2 GM/dL (11.7-16.9); MCH 30.5 pg (25.7-33.7); MEAN CELL VOLUME 87.1 fl (80-96); MEAN PLT VOLUME 8.8 fl (7.5-11.1); PLATELET COUNT 274 K/MM3 (134-434); RBC 4.32 M/mm3 (4.00-5.60); RDW 13.9 % (11.9-15.9); WHITE BLOOD COUNT 10.2 K/mm3 (4.0-10.0)
[2019-03-06 06:43] LABS: ALBUMIN 2.1 g/dl (3.4-5.0); BILIRUBIN,DIRECT 0.5 mg/dL (0.0-0.2); BILIRUBIN,TOTAL 0.8 mg/dL (0.2-1); BLOOD UREA NITROGEN 15.1 mg/dL (7-18); CALCIUM 9.1 mg/dL (8.5-10.1); CREATININE 0.8 mg/dL (0.55-1.3); POTASSIUM 4.1 mmol/L (3.5-5.1)
[2019-03-06] MEDS ORDERED: cefTRIAXone SODIUM 1 GM VIAL ONE (08:38)
[2019-03-06] MEDS ORDERED: DEXTROSE 5%-WATER - 50 ML IVPB ONE (08:38)
[2019-03-06] MEDS: FINASTERIDE 5 MG TABLET (FP) PO SCH (09:03)
[2019-03-06] MEDS: CEFTRIAXONE 1 GM in DEXTROSE 5%-WATER - 50 ML IVPB SCH (09:03)
[2019-03-06] MEDS: TAMSULOSIN HCL 0.4 MG CAP PO SCH (09:03)
--- NOTE | 2019-03-06 12:05 | PN ---
Progress Note (short form) - Note Progress Note: SUBJECTIVE: Feels better - no further flank pain. No fever/chills. No dysuria/ hematuria. OBJECTIVE: Afebrile, Hemodynamically Stable. Last Vital Signs Temp Pulse Resp BP Pulse Ox 97.8 F 74 20 144/84 96 03/06/19 10:46 03/06/19 10:46 03/06/19 10:46 03/06/19 10:46 03/05/19 21:00 Heart - S1, S2, RRR Lungs - good air entry bilaterally Abdomen- Soft, non-tender. Bowel Sounds normal. Extremities - no calf tenderness. Laboratory Results - last 24 hr 03/06/19 03/06/19 05:25 05:25 WBC 10.2 H RBC 4.32 Hgb 13.2 Hct 37.6 MCV 87.1 MCH 30.5 MCHC 35.0 RDW 13.9 Plt Count 274 MPV 8.8 Sodium 141 Potassium 4.1 Chloride 106 Carbon Dioxide 32 Anion Gap 3 L BUN 15.1 Creatinine 0.8 Est GFR (CKD-EPI)AfAm 102.71 Est GFR (CKD-EPI)NonAf 88.62 Random Glucose 96 Calcium 9.1 Total Bilirubin 0.8 Direct Bilirubin 0.5 H AST 33 ALT 44 Alkaline Phosphatase 135 H Total Protein 5.0 L Albumin 2.1 L Current Medications Generic Name Dose Route Start Last Admin Trade Name Freq PRN Reason Stop Dose Admin Acetaminophen 1,000 mg 03/03/19 18:21 Ofirmev Injection - IVPB Q6H PRN PAIN OR FEVER Finasteride 5 mg 03/04/19 10:00 03/06/19 09:03 Proscar - PO 5 mg DAILY RAPHAEL Administration Heparin Sodium (Porcine) 5,000 unit 03/03/19 22:00 03/06/19 05:31 Heparin - SQ 5,000 unit TID RAPHAEL Administration Ceftriaxone Sodium 1 gm/ 50 mls @ 100 mls/hr 03/05/19 17:00 03/06/19 09:03 Dextrose IVPB 100 mls/hr DAILY RAPHAEL Administration Protocol Morphine Sulfate 4 mg 03/03/19 18:28 Morphine Sulfate IVPUSH Q4H PRN PAIN LEVEL 6-10 Tamsulosin HCl 0.4 mg 03/04/19 08:30 03/06/19 09:03 Flomax - PO 0.4 mg DAILY@0830 RAPHAEL Administration Discharge Medications Medication Instructions Recorded Aspirin [Children's Aspirin] 81 mg PO DAILY 03/01/19 Glucosamine Sulfate Dipot Chlr 1,000 mg PO DAILY 03/01/19 [Glucosamine] Amoxicillin/Potassium Clav 1 each PO BID 7 Days #14 tablet 03/04/19 [Augmentin 500-125 Tablet] Finasteride [Proscar -] 5 mg PO DAILY #30 tablet 03/04/19 Tamsulosin HCl [Flomax -] 0.4 mg PO DAILY 30 Days #30 03/04/19 cap.er.24h ASSESSMENT AND PLAN: 73 year old male with history of BPH presented with weakness and urinary retention. CT A/P - 12mm renal stone with moderate hydronephrosis and scattered renal stones. 1. Sepsis secondary to Complicated UTI with Obstruction due to Ureteral/R UPJ Stone with Hydronephrosis - sepsis and obstruction resolved Evaluated by Urology - s/p Cystoscopy and R JJ Stent placement 03/03. Started on Flomax/Finasteride. Voiding spontaneously s/p paredes removal. Tachycardia, Leukocytosis - resolved. Urine Cx - Ecoli. Blood Cx negative. Treated with IV Zosyn - changed to IV ceftriaxone by ID. Medically optimized for discharge with out-patient Urology follow up. Oral Abx course as per ID. Follow up with urology as out-patient. 2. Hyperbilirubinemia - direct - improved Acute Hepatitis panel negative RUQ US - Fatty liver. Multiple Gallstones with borderline GB wall thickening. No cholecystitis clinically MRCP - no biliary obstruction. Repeat LFTs next week. 3. R Supra-patella Effusion - severe DJD, no septic arthritis as per Ortho - recommends RICE and out-patient MRI. Ortho out-patient follow up. 4. Hypokalemia - repleted. 5. Bilateral renal Cysts on MRI - for out-patient Urology follow up. DVT Px - Heparin SQ. Dispo - medically optimized for discharge with visiting nurse. Patient/Family requesting SNF, awaiting authorizaton. Visit type - Emergency Visit Emergency Visit: Yes ED Registration Date: 03/02/19 Care time: The patient presented to the Emergency Department on the above date and was hospitalized for further evaluation of their emergent condition. - New Patient This patient is new to me today: No - Critical Care Critical Care patient: No - Discharge Referral Referred to [facility] Med P.C.: No
--- NOTE | 2019-03-06 12:15 | PN ---
Progress Note, Physician History of Present Illness: Pt states he feels well. Remains afebrile, denying dysuria/suprapubic or flank pain. Has no specific complaints. Tolerating antibiotics. - Current Medication List Current Medications: Active Medications Acetaminophen (Ofirmev Injection -) 1,000 mg IVPB Q6H PRN PRN Reason: PAIN OR FEVER Finasteride (Proscar -) 5 mg PO DAILY [facility] Last Admin: 03/06/19 09:03 Dose: 5 mg Heparin Sodium (Porcine) (Heparin -) 5,000 unit SQ TID [facility] Last Admin: 03/06/19 05:31 Dose: 5,000 unit Ceftriaxone Sodium 1 gm/ (Dextrose) 50 mls @ 100 mls/hr IVPB DAILY [facility]; Protocol Last Admin: 03/06/19 09:03 Dose: 100 mls/hr Morphine Sulfate (Morphine Sulfate) 4 mg IVPUSH Q4H PRN PRN Reason: PAIN LEVEL 6-10 Tamsulosin HCl (Flomax -) 0.4 mg PO DAILY@0830 [facility] Last Admin: 03/06/19 09:03 Dose: 0.4 mg - Objective Vital Signs: Vital Signs Temperature 97.8 F 03/06/19 10:46 Pulse Rate 74 03/06/19 10:46 Respiratory Rate 20 03/06/19 10:46 Blood Pressure 144/84 03/06/19 10:46 O2 Sat by Pulse Oximetry (%) 96 03/05/19 21:00 Constitutional: Yes: No Distress, Calm Cardiovascular: Yes: Regular Rate and Rhythm Respiratory: Yes: Regular Gastrointestinal: Yes: Normal Bowel Sounds, Soft Genitourinary: Yes: WNL Integumentary: Yes: WNL Neurological: Yes: Alert, Oriented Labs: CBC, BMP 03/06/19 05:25 03/06/19 05:25 INR, PTT INR 1.28 (0.83-1.09) H 03/02/19 07:00 Microbiology 03/02/19 07:15 Blood - Peripheral Venous Blood Culture - Preliminary NO GROWTH OBTAINED AFTER 96 HOURS, INCUBATION TO CONTINUE FOR 1 DAYS. 03/02/19 07:00 Blood - Peripheral Venous Blood Culture - Preliminary NO GROWTH OBTAINED AFTER 96 HOURS, INCUBATION TO CONTINUE FOR 1 DAYS. 03/02/19 00:20 Urine - Urine Clean Catch Urine Culture - Final Escherichia Coli Problem List - Problems (1) BPH (benign prostatic hyperplasia) Code(s): N40.0 - BENIGN PROSTATIC HYPERPLASIA WITHOUT LOWER URINRY TRACT SYMP (2) Hydronephrosis concurrent with and due to calculi of kidney and ureter Code(s): N13.2 - HYDRONEPHROSIS WITH RENAL AND URETERAL CALCULOUS OBSTRUCTION (3) Renal calculi Code(s): N20.0 - CALCULUS OF KIDNEY (4) UTI (urinary tract infection) Code(s): N39.0 - URINARY TRACT INFECTION, SITE NOT SPECIFIED Assessment/Plan Complicated UTI Obstructing Rt UVJ stone s/p stent hydronephrosis Leukocytosis - resolved BPH -- pt clinically stable/afebrile, wbc trended down to normal -- if d/c home suggest levaquin 750 mg po to complete total of 10 days antibiotic treatment -- pt to f/u with PMD/urology as outpt upon d/c
[2019-03-07] MEDS: HEPARIN NA (PORCINE) 5,000 UNITS/ML 1ML VIAL SQ SCH ×3 (06:04→21:55)
[2019-03-07] MEDS: TAMSULOSIN HCL 0.4 MG CAP PO SCH (08:32)
[2019-03-07] MEDS ORDERED: cefTRIAXone SODIUM 1 GM VIAL ONE (10:06)
[2019-03-07] MEDS ORDERED: DEXTROSE 5%-WATER - 50 ML IVPB ONE (10:07)
[2019-03-07] MEDS: CEFTRIAXONE 1 GM in DEXTROSE 5%-WATER - 50 ML IVPB SCH (10:09)
[2019-03-07] MEDS: FINASTERIDE 5 MG TABLET (FP) PO SCH (10:09)
[2019-03-07] MEDS ORDERED: ACETAMINOPHEN 325 MG TABLET (FP) PO PRN (15:24)
--- NOTE | 2019-03-07 15:56 | PN ---
Teaching Attending Note Name of Resident: Ruth Ann Boateng ATTENDING PHYSICIAN STATEMENT I saw and evaluated the patient. I reviewed the resident's note and discussed the case with the resident. I agree with the resident's findings and plan as documented. SUBJECTIVE: Feels much improved - no further flank/abdominal pain. No fever/ chills. No dysuria/hematuria. OBJECTIVE: Afebrile, Hemodynamically Stable. Last Vital Signs Temp Pulse Resp BP Pulse Ox 98.1 F 70 19 132/72 98 03/07/19 14:00 03/07/19 14:00 03/07/19 14:00 03/07/19 14:00 03/07/19 09:00 Heart - S1, S2, RRR Lungs - good air entry bilaterally Abdomen- Soft, non-tender. Bowel Sounds normal. Extremities - no calf tenderness. Current Medications Generic Name Dose Route Start Last Admin Trade Name Freq PRN Reason Stop Dose Admin Acetaminophen 1,000 mg 03/03/19 18:21 Ofirmev Injection - IVPB Q6H PRN PAIN OR FEVER Acetaminophen 650 mg 03/07/19 15:24 Tylenol - PO Q6H PRN Fever Or Pain Finasteride 5 mg 03/04/19 10:00 03/07/19 10:09 Proscar - PO 5 mg DAILY RAPHAEL Administration Heparin Sodium (Porcine) 5,000 unit 03/03/19 22:00 03/07/19 14:36 Heparin - SQ 5,000 unit TID RAPHAEL Administration Ceftriaxone Sodium 1 gm/ 50 mls @ 100 mls/hr 03/05/19 17:00 03/07/19 10:09 Dextrose IVPB 100 mls/hr DAILY RAPHAEL Administration Protocol Tamsulosin HCl 0.4 mg 03/04/19 08:30 03/07/19 08:32 Flomax - PO 0.4 mg DAILY@0830 RAPHAEL Administration Discharge Medications Medication Instructions Recorded Aspirin [Children's Aspirin] 81 mg PO DAILY 03/01/19 Glucosamine Sulfate Dipot Chlr 1,000 mg PO DAILY 03/01/19 [Glucosamine] Amoxicillin/Potassium Clav 1 each PO BID 7 Days #14 tablet 03/04/19 [Augmentin 500-125 Tablet] Finasteride [Proscar -] 5 mg PO DAILY #30 tablet 03/04/19 Tamsulosin HCl [Flomax -] 0.4 mg PO DAILY 30 Days #30 03/04/19 cap.er.24h ASSESSMENT AND PLAN: 73 year old male with history of BPH presented with weakness and urinary retention. CT A/P - 12mm renal stone with moderate hydronephrosis and scattered renal stones. 1. Sepsis secondary to Complicated UTI with Obstruction due to Ureteral/R UPJ Stone with Hydronephrosis - sepsis and obstruction resolved Evaluated by Urology - s/p Cystoscopy and R JJ Stent placement 03/03. Started on Flomax/Finasteride. Voiding spontaneously s/p paredes removal. Tachycardia, Leukocytosis - resolved. Urine Cx - Ecoli. Blood Cx negative. Treated with IV Zosyn - changed to IV ceftriaxone by ID 03/05 - for transition to oral Levofloxacin on DC for total 10 days Abx therapy as per ID. Medically optimized for discharge with out-patient Urology follow up. Oral Abx course as per ID. Follow up with urology as out-patient. Medically clear for discharge - awaiting Insurance authorization for SNF. 2. Hyperbilirubinemia - direct - improved Acute Hepatitis panel negative RUQ US - Fatty liver. Multiple Gallstones with borderline GB wall thickening. No cholecystitis clinically MRCP - no biliary obstruction. Repeat LFTs next week. 3. R Supra-patella Effusion - severe DJD, no septic arthritis as per Ortho - recommends RICE and out-patient MRI. Ortho out-patient follow up. 4. Hypokalemia - repleted. 5. Bilateral renal Cysts on MRI - for out-patient Urology follow up. DVT Px - Heparin SQ. Dispo - medically optimized for discharge with visiting nurse. Patient/Family requesting SNF, awaiting authorizaton.
--- NOTE | 2019-03-07 18:52 | PN ---
Progress Note, Physician History of Present Illness: Pt alert, without distress. No new complaints. - Current Medication List Current Medications: Active Medications Acetaminophen (Tylenol -) 650 mg PO Q6H PRN PRN Reason: Fever Or Pain4-8 Finasteride (Proscar -) 5 mg PO DAILY [facility] Last Admin: 03/07/19 10:09 Dose: 5 mg Heparin Sodium (Porcine) (Heparin -) 5,000 unit SQ TID [facility] Last Admin: 03/07/19 14:36 Dose: 5,000 unit Ceftriaxone Sodium 1 gm/ (Dextrose) 50 mls @ 100 mls/hr IVPB DAILY [facility]; Protocol Last Admin: 03/07/19 10:09 Dose: 100 mls/hr Tamsulosin HCl (Flomax -) 0.4 mg PO DAILY@0830 [facility] Last Admin: 03/07/19 08:32 Dose: 0.4 mg - Objective Vital Signs: Vital Signs Temperature 98.1 F 03/07/19 14:00 Pulse Rate 70 03/07/19 14:00 Respiratory Rate 03/07/19 14:00 Blood Pressure 132/72 03/07/19 14:00 O2 Sat by Pulse Oximetry (%) 98 03/07/19 09:00 Constitutional: Yes: No Distress, Calm Cardiovascular: Yes: Regular Rate and Rhythm Respiratory: Yes: CTA Bilaterally Gastrointestinal: Yes: Normal Bowel Sounds, Soft Genitourinary: Yes: WNL Integumentary: Yes: WNL Neurological: Yes: Alert, Oriented Labs: CBC, BMP 03/06/19 05:25 03/06/19 05:25 INR, PTT INR 1.28 (0.83-1.09) H 03/02/19 07:00 Microbiology 03/02/19 07:15 Blood - Peripheral Venous Blood Culture - Final NO GROWTH AFTER 5 DAYS INCUBATION 03/02/19 07:00 Blood - Peripheral Venous Blood Culture - Final NO GROWTH AFTER 5 DAYS INCUBATION 03/02/19 00:20 Urine - Urine Clean Catch Urine Culture - Final Escherichia Coli Problem List - Problems (1) BPH (benign prostatic hyperplasia) Code(s): N40.0 - BENIGN PROSTATIC HYPERPLASIA WITHOUT LOWER URINRY TRACT SYMP (2) Hydronephrosis concurrent with and due to calculi of kidney and ureter Code(s): N13.2 - HYDRONEPHROSIS WITH RENAL AND URETERAL CALCULOUS OBSTRUCTION (3) Renal calculi Code(s): N20.0 - CALCULUS OF KIDNEY (4) UTI (urinary tract infection) Code(s): N39.0 - URINARY TRACT INFECTION, SITE NOT SPECIFIED Assessment/Plan Complicated UTI Obstructing Rt UVJ stone s/p stent hydronephrosis Leukocytosis - resolved BPH -- pt clinically improving -- continue antibiotics as discussed --awaiting [facility] transfer
--- NOTE | 2019-03-07 21:42 | PN ---
Physical Exam: SUBJECTIVE: Patient seen and examined. He denies fever, chills, dysuria. He reports right knee pain. Waiting placement at [facility]. OBJECTIVE: Vital Signs Period Temp Pulse Resp BP Sys/Hernandez Pulse Ox Last 24 Hr 98.1 F-98.9 F 70-79 18-19 130-150/72-86 98 GENERAL: The patient is awake, alert, and fully oriented, in no acute distress. HEAD: Normal with no signs of trauma. EYES: PERRL, extraocular movements intact, sclera anicteric, conjunctiva clear. No ptosis. ENT: Ears normal, nares patent, moist mucous membranes. NECK: Trachea midline, full range of motion, supple. LUNGS: Breath sounds equal, clear to auscultation bilaterally, no wheezes, no crackles, no accessory muscle use. HEART: Regular rate and rhythm, S1, S2 without murmur, rub or gallop. ABDOMEN: Soft, nontender, nondistended, normoactive bowel sounds EXTREMITIES: 2+ pulses, warm, well-perfused, no edema. right knee swelling, not erythematous NEUROLOGICAL: Cranial nerves II through XII grossly intact. Normal speech, gait not observed. PSYCH: Normal mood, normal affect. SKIN: Warm, dry, normal turgor, no rashes or lesions noted Active Medications Generic Name Dose Route Start Last Admin Trade Name Freq PRN Reason Stop Dose Admin Acetaminophen 650 mg 03/07/19 15:24 Tylenol - PO Q6H PRN Fever Or Pain4-8 Finasteride 5 mg 03/04/19 10:00 03/07/19 10:09 Proscar - PO 5 mg DAILY RAPHAEL Administration Heparin Sodium (Porcine) 5,000 unit 03/03/19 22:00 03/07/19 14:36 Heparin - SQ 5,000 unit TID RAPHAEL Administration Ceftriaxone Sodium 1 gm/ 50 mls @ 100 mls/hr 03/05/19 17:00 03/07/19 10:09 Dextrose IVPB 100 mls/hr DAILY RAPHAEL Administration Protocol Tamsulosin HCl 0.4 mg 03/04/19 08:30 03/07/19 08:32 Flomax - PO 0.4 mg DAILY@0830 RAPHAEL Administration ASSESSMENT/PLAN: Mr. Gee is a 73yo male with no known PMH who presents with weakness, urinary hesitancy, and chronic knee pain on 03/01/19. Pt found to have complicated UTI 2/2 nephrolithiasis and osteoarthritis. Currently awaiting SNF placement. #complicated UTI 2/2 nephrolithiasis Pt had 5 days of urinary hesitancy, dribbling, chills, and weakness. WBC 13.8. BUN 24.9. CT showed 1.2x0.9cm stone just prior to right ureterovesical junction , mild right renal hydronephrosis, mild to mod hydroureter and minimal perinephric fluid. Enlarged prostate with small calcifications. -flomax -paredes-d/c'ed- pt urinating -JJ stent placed -finasteride -urine culture grew Ecoli- previously on Zosyn, now on ceftriaxone since 03/05 - will begin Augmentin x 7 days at discharge -blood culture negative #leukocytosis, resolving 10.2 -currently on abx #right knee osteoarthritis, suprapatellar effusion -PT -RICE -tylenol PRN -f/u outpt MRI #thrombocytopenia, resolved 274 #hyperbilirubinemia, resolved 1.1. U/S fatty liver disease vs hepatocellular disease. Multiple gallstones with mild gallbladder wall thickening. No pericholecystic fluid. Afebrile. -MRI/MRCP spleenomegaly, no bile duct dilatation #elevated BNP 1500. No prior comparison. pt denies cp, sob -f/u cards #alcohol use pt drinks ~7 beers 3-4 days/wk x 55 years #screening Pt reports not going to the doctor in 30 years. Given unknown medical hx will run labs for chronic conditions that may affect tx. -HbA1C- 4.8 -lipid panel- total chol 67, LDL 39, HDL 11 FEN PO fluids monitor lytes regular diet DVT Ppe heparin Visit type - Emergency Visit Emergency Visit: Yes ED Registration Date: 03/02/19 Care time: The patient presented to the Emergency Department on the above date and was hospitalized for further evaluation of their emergent condition. - New Patient This patient is new to me today: No - Critical Care Critical Care patient: No - Discharge Referral Referred to [facility] Med P.C[facility] No ATTENDING PHYSICIAN STATEMENT I saw and evaluated the patient. I reviewed the resident's note and discussed the case with the resident. I agree with the resident's findings and plan as documented. SUBJECTIVE: OBJECTIVE: ASSESSMENT AND PLAN:
[2019-03-08] MEDS: HEPARIN NA (PORCINE) 5,000 UNITS/ML 1ML VIAL SQ SCH ×2 (06:19→14:34)
[2019-03-08] MEDS: TAMSULOSIN HCL 0.4 MG CAP PO SCH (08:45)
[2019-03-08 09:50] VITALS: BP 135/90; PULSE 87; TEMP 97.9
[2019-03-08] MEDS ORDERED: DEXTROSE 5%-WATER - 50 ML IVPB ONE (10:17)
[2019-03-08] MEDS ORDERED: cefTRIAXone SODIUM 1 GM VIAL ONE (10:17)
[2019-03-08] MEDS: CEFTRIAXONE 1 GM in DEXTROSE 5%-WATER - 50 ML IVPB SCH (10:26)
[2019-03-08] MEDS: FINASTERIDE 5 MG TABLET (FP) PO SCH (10:26)
--- NOTE | 2019-03-08 11:40 | PN ---
Progress Note, Physician History of Present Illness: patient stable no new issues - Current Medication List Current Medications: Active Medications Acetaminophen (Tylenol -) 650 mg PO Q6H PRN PRN Reason: Fever Or Pain4-8 Finasteride (Proscar -) 5 mg PO DAILY [facility] Last Admin: 03/08/19 10:26 Dose: 5 mg Heparin Sodium (Porcine) (Heparin -) 5,000 unit SQ TID [facility] Last Admin: 03/08/19 06:19 Dose: 5,000 unit Ceftriaxone Sodium 1 gm/ (Dextrose) 50 mls @ 100 mls/hr IVPB DAILY [facility]; Protocol Last Admin: 03/08/19 10:26 Dose: 100 mls/hr Tamsulosin HCl (Flomax -) 0.4 mg PO DAILY@0830 [facility] Last Admin: 03/08/19 08:45 Dose: 0.4 mg - Objective Vital Signs: Vital Signs Temperature 97.9 F 03/08/19 09:49 Pulse Rate 87 03/08/19 09:49 Respiratory Rate 18 03/08/19 09:49 Blood Pressure 135/90 03/08/19 09:49 O2 Sat by Pulse Oximetry (%) 98 03/07/19 09:00 Constitutional: Yes: No Distress, Calm Cardiovascular: Yes: S1, S2 Respiratory: Yes: Regular, CTA Bilaterally Gastrointestinal: Yes: Normal Bowel Sounds, Soft Musculoskeletal: Yes: WNL Extremities: Yes: WNL Neurological: Yes: Alert, Oriented Psychiatric: Yes: Alert, Oriented Labs: CBC, BMP 03/06/19 05:25 03/06/19 05:25 INR, PTT INR 1.28 (0.83-1.09) H 03/02/19 07:00 Assessment/Plan Rt UVJ stone Rt knee pain Elevated ALP, Bili Leukocytosis Thrombocytopenia bph plan continue abx as planned complete the abx course
--- NOTE | 2019-03-08 13:33 | PN ---
Teaching Attending Note Name of Resident: Ruth Ann Boateng ATTENDING PHYSICIAN STATEMENT I saw and evaluated the patient. I reviewed the resident's note and discussed the case with the resident. I agree with the resident's findings and plan as documented. SUBJECTIVE:asymptomatic. denies CP, SOB, fever, chills, N/V/C/D OBJECTIVE: Last Vital Signs Temp Pulse Resp BP Pulse Ox 97.9 F 87 18 135/90 98 03/08/19 09:49 03/08/19 09:49 03/08/19 09:49 03/08/19 09:49 03/07/19 09:00 General NAD CV S1 S2 RRR no murmur/rub/gallop lungs CTA B/L no wheezing/rales/rhonchi Abdomen soft NT/ND ASSESSMENT AND PLAN: 73 year old male with history of BPH presented with weakness and urinary retention. 1. Sepsis secondary to Complicated UTI with Obstruction due to Ureteral/R UPJ Stone with Hydronephrosis -s/p Cystoscopy and R JJ Stent placement 03/03. all resolved. on ceftriacone day 4. will switched to levaquin to complete 10 days. will need outpatient urology follow up. on flomax/finasteride 2. Hyperbilirubinemia - direct - u/s noted. trending down. 3. R Supra-patella Effusion - severe DJD, no septic arthritis as per Ortho - recommends RICE and out-patient MRI. Ortho out-patient follow up. 4. Hypokalemia - repleted. 5. Bilateral renal Cysts on MRI - for out-patient Urology follow up. 6. DVT Px - Heparin SQ. 7. medically optimized for discharge. awaiting auth for SNF placement. stressed importance of follow up
--- NOTE | 2019-03-08 14:00 | DS ---
Physical Exam: SUBJECTIVE: Patient seen and examined. He denies dysuria, urinary hesitancy, fever or chills. He is having right knee pain and swelling. OBJECTIVE: Vital Signs Period Temp Pulse Resp BP Sys/Hernandez Pulse Ox Last 24 Hr 97.7 F-98.4 F 70-87 18-19 132-152/72-90 97 PHYSICAL EXAM GENERAL: The patient is awake, alert, and fully oriented, in no acute distress. HEAD: Normal with no signs of trauma. EYES: PERRL, extraocular movements intact, sclera anicteric, conjunctiva clear. ENT: Ears normal, nares patent, moist mucous membranes. NECK: Trachea midline, full range of motion, supple. LUNGS: Breath sounds equal, clear to auscultation bilaterally, no wheezes, no crackles, no accessory muscle use. HEART: Regular rate and rhythm, S1, S2 without murmur, rub or gallop. ABDOMEN: Soft, nontender, nondistended, normoactive bowel sounds EXTREMITIES: 2+ pulses, warm, well-perfused, right knee swelling, not erythematous NEUROLOGICAL: Cranial nerves II through XII grossly intact. Normal speech, gait not observed. PSYCH: Normal mood, normal affect. SKIN: Warm, dry, normal turgor, no rashes or lesions noted. LABS CBC, BMP 03/06/19 05:25 03/06/19 05:25 HOSPITAL COURSE: Mr. Gee is a 73yo male with no known PMH (has not seen a doctor in 30 years) who presents with weakness, urinary hesitancy, and chronic knee pain on 03/01/19. Pt had 5 days of urinary hesitancy, dribbling, chills, and weakness. He had a nitrite positive urinalysis and culture grew E. coli. He was diagnosed with complicated UTI and treated with Zosyn then ceftriaxone. He also had 1.2x0.9cm stone just prior to right ureterovesical junction and hydronephrosis. Dr. Cleveland placed a stent and pt was started on Flomax and finasteride. He will be taking Levaquin as out pt to continue abx tx. CT and U/S showed inconsistent abnormalities of liver and suggested correlation with labs. Pt initially presented with hyperbilirubinemia which resolved over the course. He had an x-ray that showed OA and joint effusion. He was able to walk 125 feet the day before discharge.Dr. Morillo will see him outpatient. His BNP was elevated above 1000. He will follow up with Dr. Gifford. He is being d/c'ed to [facility] for short-term rehab. Date of Admission:03/02/19 Date of Discharge: 03/08/19 Minutes to complete discharge: 35 Discharge Summary Reason For Visit: URINARY TRACT INFECTION Current Active Problems BPH (benign prostatic hyperplasia) (Acute) Hydronephrosis concurrent with and due to calculi of kidney and ureter (Acute) Renal calculi (Acute) UTI (urinary tract infection) (Acute) Ureteral calculus (Acute) Condition: Stable - Instructions Diet, Activity, Other Instructions: Your Hospital Visit: You were treated in the hospital because you had a kidney stone that caused an urinary tract infection. You were evaluated by the Urologist, and infectious disease physician. You were treated with IV antibiotics and a stent was placed to help your kidney drain extra fluid. You will need to take antibiotics after you are discharged, as well. Ultrasound and CT scan showed you had gallstones which are not causing an infection, as well as a large liver. The EKG done here showed you have an irregular heart beat sometimes and your rhythm is abnormal but not an emergency. It is important you take your medications and follow up for these conditions. Medications: You may continue your home medications. You are being prescribed tamsulosin and finasteride to help you urinate more easily. You are also being prescribed antibiotic Levaquin for 4 more days to finish treating your urinary tract infection. Please follow up with the following doctors: Follow up with your primary care doctor for follow up labs to discuss your liver. A referral for Dr. Boykin has been provided. Dr. Cleveland with urology within 1 week. He will discuss with you when your stent will be removed. Dr. Gifford with cardiology within [address] Morillo with orthopedics within 1 month regarding your knee pain. You may need an MRI or other images to follow it closely Please present to the nearest emergency room if you experience any mental status changes, chest pain, sudden shortness of breath, and abdominal pain. Referrals: Darin Boykin MD [Staff Physician] - 1 Week Morales Cleveland MD [Staff Physician] - 03/11/19 Timothy Gifford MD [Staff Physician] - 1 Week Christian Morillo DO [Staff Physician] - 1 Week Disposition: [facility] - Home Medications Comprehensive Discharge Medication List: Ambulatory Orders Aspirin [Children's Aspirin] 81 mg PO DAILY 03/01/19 Glucosamine Sulfate Dipot Chlr [Glucosamine] 1,000 mg PO DAILY 03/01/19 Finasteride [Proscar -] 5 mg PO DAILY #30 tablet 03/04/19 Tamsulosin HCl [Flomax -] 0.4 mg PO DAILY 30 Days #30 cap.er.24h 03/04/19 Levofloxacin [Levaquin] 250 mg PO DAILY 10 Days #10 tablet 03/07/19 This patient is new to me today: No Emergency Visit: Yes ED Registration Date: 03/02/19 Care time: The patient presented to the Emergency Department on the above date and was hospitalized for further evaluation of their emergent condition. Critical Care patient: No - Discharge Referral Referred to [facility] Med P.C.: No ATTENDING PHYSICIAN STATEMENT I saw and evaluated the patient. I reviewed the resident's note and discussed the case with the resident. I agree with the resident's findings and plan as documented. SUBJECTIVE: OBJECTIVE: ASSESSMENT AND PLAN:
== END 2019-03-08 16:37 | DRG 854 ==
LOC: JER 20:09 → JERBED 03-02 01:31 → J5S 03-02 04:02
PROVIDERS: ADMIT Internal Medicine; ATTEND Internal Medicine
PROC: 0T7B8DZ Dilation of Bladder with Intraluminal Device, Via Natural or Artificial Opening Endoscopic (ICD-10-PCS; principal; 2019-03-03 15:30)
PROC: 0T768DZ Dilation of Right Ureter with Intraluminal Device, Via Natural or Artificial Opening Endoscopic (ICD-10-PCS; 2019-03-03 15:30)
PROC: BT1DZZZ Fluoroscopy of Right Kidney, Ureter and Bladder (ICD-10-PCS; 2019-03-03 15:30)
DX: A41.51 Sepsis due to Escherichia coli [E. coli] (principal); N13.6 Pyonephrosis; N39.0 Urinary tract infection, site not specified; N20.0 Calculus of kidney; D72.829 Elevated white blood cell count, unspecified; D69.6 Thrombocytopenia, unspecified; K76.0 Fatty (change of) liver, not elsewhere classified; M25.461 Effusion, right knee; E87.6 Hypokalemia; R00.0 Tachycardia, unspecified; E80.6 Other disorders of bilirubin metabolism; M17.11 Unilateral primary osteoarthritis, right knee; B96.20 Unspecified Escherichia coli [E. coli] as the cause of diseases classified elsewhere; N28.1 Cyst of kidney, acquired
CPT/HCPCS: 36415; 71045-TC-FY; 73564-TC-RT-FY; 74176-TC; 74181-TC; 76000-TC-FY; 76705-TC; 80053; 80061; 80074; 81003; 82248; 82803; 82977; 83036; 83605; 83690; 83721; 83735; 83880; 85025; 85027; 85610; 85730; 86850; 86900; 86901; 87040; 87086; 87186; 87389; 93005; 93010; 94760; 97116-GP; 97161-GP; 99284-25; J0131; J1644; J7030

== ENCOUNTER 2019-04-07 11:04 | Day surgery (SDC) | payer OTHER ==
[2019-04-06 17:13] VITALS: BMI 29.5
--- NOTE | 2019-04-07 07:54 | HP ---
History & Physical Update - History History: No Change - Physical Physical: No Change - Assessment Assessment: No Change - Plan Plan: No Change
--- NOTE | 2019-04-07 07:57 | OP ---
Operative Note - Note: Operative Date: 04/07/19 Pre-Operative Diagnosis: R ureteral calculus Operation: R ureteroscopic laser lithotripsy and JJ stent change Findings: R ureteral calculus Post-Operative Diagnosis: Same as Pre-op Surgeon: Morales Cleveland Anesthesiologist/APPLE SORTER: Stanley Gonzales Anesthesia: General Specimens Removed: R ureteral calculi, R JJ stent Estimated Blood Loss (mls): 0 Drains & Tubes with Location: 6 fr 26 cm R JJ stent Operative Report Dictated: Yes
[2019-04-07] MEDS ORDERED: PROPOFOL 20 ML ONE ×2 (13:24→14:25)
[2019-04-07] MEDS ORDERED: MIDAZOLAM HCL 2 MG/2 ML SINGLE DOSE VIAL ONE (13:25)
[2019-04-07] MEDS ORDERED: ceFAZolin SODIUM 1 GM VIAL IVPB ONE (13:40)
[2019-04-07] MEDS ORDERED: SUCCINYLCHOLINE CHLORIDE 200 MG/10 ML SYRINGE ONE (13:43)
[2019-04-07] MEDS ORDERED: PHENYLEPHRINE HCL 10 MG/1 ML SINGLE DOSE VIAL ONE (13:49)
[2019-04-07] MEDS ORDERED: LIDOCAINE HCL/PF 2% SDV 5ML VIAL ONE (14:14)
[2019-04-07] MEDS ORDERED: ceFAZolin SODIUM 1 GM VIAL ONE ×2 (14:14)
[2019-04-07] MEDS ORDERED: DEXAMETHASONE SOD PHOSPHATE 4 MG/1 ML VIAL ONE (14:14)
[2019-04-07] MEDS ORDERED: oxyCODONE HCL 5 MG TABLET PO PRN ×2 (14:16)
[2019-04-07] MEDS ORDERED: ONDANSETRON 4 MG/2 ML VIAL IVPUSH PRN (14:16)
[2019-04-07] MEDS ORDERED: LACTATED RINGERS SOLUTION 1,000 ML IV SCH (14:30)
[2019-04-07 17:06] VITALS: BP 145/81; PULSE 80; TEMP 98.2
--- NOTE | 2019-04-12 09:30 | PATH ---
Surgical Pathology Report Patient Name: OLIVIA BARNHART Med. Rec. #: [id number] /Age/Gender: 1945 (Age: 73) / M Account: [id number] Location: [facility] SURGICAL Taken: 04/07/2019 Received: 04/08/2019 Reported: 04/12/2019 Physicians: Morales Cleveland M.D. Specimen(s) Received A: RIGHT URETERAL STENT B: RIGHT URETERAL STONE Clinical History Right ureteral stone/hydronephrosis Final Diagnosis A. URETERAL STENT, REMOVAL: PORTION OF STENT. GROSS EXAMINATION ONLY. B. RIGHT URETERAL STONE, REMOVAL: CONSISTENT WITH URETERAL STONE. SENT TO CHEMICAL ANALYSIS. Electronically Signed Lucita Griffin M.D. Gross Description A. Received in a container, labeled "ureteral stent" is a portion of plastic stent measuring 32.5 cm and 0.2 cm diameter. Gross examination only. B. Received in formalin, labeled "right ureteral stone" are 2 dark brown, irregular stones measuring 0.3 to 0.6 cm. in greatest dimension. Sent to chemical analysis. __ SALIMA/04/08/2019 [email or web address]/04/08/2019
--- NOTE | 2019-04-14 08:29 | OP ---
DATE OF OPERATION: 04/07/2019 PREOPERATIVE DIAGNOSIS: Right ureteral calculus. POSTOPERATIVE DIAGNOSIS: Right ureteral calculus. PROCEDURE: Right ureteroscopic laser lithotripsy and double-J stent exchange. SURGEON: Morales Cleveland MD HOT BALLER: None. ANESTHESIA: General via laryngeal mask. ANESTHESIOLOGIST: CAYDEN No SPECIMENS: Right ureteral calculi, right double-J stent. CULTURES: None. DRAINS: A 6-Portuguese 26-cm right double-J stent. ESTIMATED BLOOD LOSS: None. COMPLICATIONS: None. DESCRIPTION OF PROCEDURE: Patient was brought in the operating room, placed on the operating table in supine position. After the administration of general anesthesia, intravenous antibiotics were administered. Sequential compression devices were placed. Patient was placed in the dorsal lithotomy position. Perineum and genitals were prepped and draped in usual sterile manner. A 22-Portuguese cystoscope was inserted into the bladder under direct vision. Anterior urethra was normal. The prostatic urethra demonstrated moderately occlusive BPH. The bladder was entered and thoroughly inspected. There were no tumors, stones, or inflammation. Right double-J stent was grasped with a , brought to the urethral meatus, cannulated with a 0.038 guidewire which was advanced to the level of the right renal pelvis under fluoroscopic guidance. The double-J stent was removed, sent to pathology as specimen. The bladder was emptied, cystoscope removed. Semi-rigid ureteroscope was inserted alongside the guidewire to the distal ureter where a large stone was visualized. Per using a 365 micron laser fiber, laser lithotripsy was done until the stone was fragmented into small pieces which were then basketed and removed. The entire course of the ureter was then re-inspected. No additional stones were seen. Retrograde pyelogram was done, demonstrated no extravasation of the contrast, no additional stones, no hydronephrosis. The ureteroscope was removed, the cystoscope backloaded, and a 6-Portuguese 26-cm right double-J stent was inserted over the guidewire under direct visual and fluoroscopic guidance, leaving 1 coil in the renal pelvis and 1 coil in the bladder. He tolerated the procedure well, transferred to recovery in stable condition. Roberto [id number]
== END 2019-04-07 16:45 | disposition home or self-care (01) ==
LOC: JASU-SURG 11:04
PROVIDERS: ATTEND Urology
PROC: 0TF68ZZ Fragmentation in Right Ureter, Via Natural or Artificial Opening Endoscopic (ICD-10-PCS; principal; 2019-04-07 13:00)
PROC: 0T768DZ Dilation of Right Ureter with Intraluminal Device, Via Natural or Artificial Opening Endoscopic (ICD-10-PCS; 2019-04-07 13:00)
DX: N20.1 Calculus of ureter (principal)
CPT/HCPCS: 36415; 76000-TC-FY; 82360; 88300-TC; 94760

== ENCOUNTER 2019-08-30 06:21 | Day surgery (SDC) | payer OTHER ==
[2019-08-30 07:11] VITALS: BMI 28.8
--- NOTE | 2019-08-30 07:44 | HP ---
History & Physical Update - History History: No Change - Physical Physical: No Change - Assessment Assessment: No Change - Plan Plan: No Change
--- NOTE | 2019-08-30 07:46 | OP ---
Operative Note - Note: Operative Date: 08/30/19 Pre-Operative Diagnosis: L renal calculus Operation: ESWL L Findings: L renal calculus Post-Operative Diagnosis: Same as Pre-op Surgeon: Morales Cleveland Anesthesia: Fractional Estimated Blood Loss (mls): 0 Operative Report Dictated: Yes
[2019-08-30] MEDS ORDERED: MIDAZOLAM HCL 2 MG/2 ML SINGLE DOSE VIAL ONE ×2 (08:12→08:22)
[2019-08-30 09:06] VITALS: BP 146/86; PULSE 62; TEMP 97.6
--- NOTE | 2019-08-30 10:17 | OP ---
DATE OF OPERATION: 08/30/2019 PREOPERATIVE DIAGNOSIS: Left renal calculus. POSTOPERATIVE DIAGNOSIS: Left renal calculus. PROCEDURE: Extracorporeal shock-wave lithotripsy, left renal calculus. SURGEON: Morales Jeter MD URGENT CARE NURSE PRACTITIONER: None. ANESTHESIA: IV sedation. ANESTHESIOLOGIST: Emili Moon MD SPECIMENS: None. CULTURES: None. DRAINS: None. ESTIMATED BLOOD LOSS: None. COMPLICATIONS: None. DESCRIPTION OF PROCEDURE: Patient was brought in the operating room, placed on the operating room table in supine position. After the administration of intravenous sedation, patient was positioned over the treatment head, and under ultrasound guidance, a 9-mm left upper pole renal calculus was identified, targeted, and delivered 2500 shocks at maximum kilovoltage with excellent fragmentation. Tolerated the procedure well. Transferred to the recovery room in stable condition. MORALES JETER M.D. [id number]
== END 2019-08-30 10:40 | disposition home or self-care (01) ==
LOC: JASU-SURG 06:21
PROVIDERS: ATTEND Urology
PROC: 0TF3XZZ Fragmentation in Right Kidney Pelvis, External Approach (ICD-10-PCS; principal; 2019-08-30 08:15)
DX: N20.0 Calculus of kidney (principal)

== ENCOUNTER 2022-02-11 03:57 | Day surgery (SDC) | payer OTHER ==
[2022-02-07 13:31] VITALS: BMI 28.5
[2022-02-11 07:07] VITALS: RESP 18
[2022-02-11] MEDS ORDERED: PROPOFOL 20 ML ONE (09:02)
[2022-02-11 10:36] VITALS: BP 138/83; PULSE 58; TEMP 97.7
== END 2022-02-11 10:30 | disposition home or self-care (01) ==
LOC: JASU-SURG 03:57
PROVIDERS: ATTEND Urology
PROC: 0TF3XZZ Fragmentation in Right Kidney Pelvis, External Approach (ICD-10-PCS; principal; 2022-02-11 08:45)
DX: N20.0 Calculus of kidney (principal)